=== PATIENT | female | born 1960 | race African-American/Black ===

== ENCOUNTER 2016-11-01 09:13 | Emergency (ER) | payer MEDICARE ==
[2016-11-01 08:54] LABS: BASOPHILS 0.1 %; BASOPHILS ABSOLUTE 0.01 10/3/uL (0.0-0.16); EOSINOPHILS 0.7 %; EOSINOPHILS ABSOLUTE 0.06 10/3/uL (0.0-0.53); ER CBC TAT 0 Hrs 07 Mins; HEMATOCRIT 29.2 % (36.0-48.0); HEMOGLOBIN 9.9 g/dL (12.0-16.0); IMMATURE GRANULOCYTES 0.2 %; IMMATURE GRANULOCYTES ABSOLUTE 0.02 10/3/uL (0.0-0.11); LYMPHOCYTES 20.9 %; LYMPHOCYTES ABSOLUTE 1.68 10/3/uL (0.67-4.30); MANUAL DIFF NO %; MEAN CORPUS HGB CONC 33.9 g/dL (32.0-36.0); MEAN CORPUSCULAR HEMOGLOB 31.3 pg (26.0-34.0); MEAN CORPUSCULAR VOLUME 92.4 fL (80-100); MEAN PLATELET VOLUME 11.7 fL (9.2-13.0); MONOCYTES 10.2 %; MONOCYTES ABSOLUTE 0.82 10/3/uL (0.21-1.20); NEUTROPHILS 67.9 %; NEUTROPHILS ABSOLUTE 5.46 10/3/uL (2.02-8.40); PLATELET COUNT 259 10/3/uL (150-400); RBC DISTRIBUTION WIDTH 17.3 % (12.0-16.0); RED CELL COUNT 3.16 10/6/uL (4.0-5.6); WHITE BLOOD CELLS 8.1 10/3/uL (4.5-10.5)
[2016-11-01 09:08] LABS: A/G RATIO 0.9 (0.7-1.9); ALBUMIN 3.1 G/DL (3.5-5.0); ALKALINE PHOSPHATASE 228 U/L (45-117); BUN (BLOOD UREA NITROGEN) 36 MG/DL (6-23); CALCIUM, SERUM 9.1 MG/DL (8.5-10.4); CHLORIDE, SERUM 100 MMOL/L (96-112); CO2 (CARBON DIOXIDE) 24 MMOL/L (24-34); CREATININE 1.85 MG/DL (0.55-1.02); GFR AFRICAN AMERICAN 35 ML/MIN (>=60); GFR NON AFRICAN AMERICAN 30 ML/MIN (>=60); GLOBULIN 3.5 G/DL (2.5-4.1); GLUCOSE, SERUM 168 MG/DL (60-99); POTASSIUM, SERUM 3.5 MMOL/L (3.5-5.3); SGOT(AST) 14 U/L (5-40); SGPT(ALT) 30 U/L (5-65); SODIUM, SERUM 138 MMOL/L (135-148); TOTAL BILIRUBIN 1.5 MG/DL (0-1.2); TOTAL PROTEIN 6.6 G/DL (6.0-8.5)
[~2016-11-01 09:13] MED LIST: ASABAYER PO; ATV.5 PO; ATV1 PO; BETHAN10B PO; CETIRIZINE PO; COMBIVENT RESPIM4 GM INH; COMP10B PO; COREG25 PO; FIORICET 50-301 EACH PO; FLONASE NAS; ICY HOT CREAM TOP; INSULIN N SC; INSULIN R SC; L80 PO; METHIMAZOLE10 MG PO; METHOC500B PO; NEXIUM20 M1 PO; NEXIUM40 PO; NORCO1 TA1 PO; NOVOLOG SC; PATADAY OPH; PRIN20 PO; PROVENTSOL INH; PSEUDOEPHEDRINE PO; SEROQUEL1C PO; SEROQUEL50 MG PO; ZYRTEC ALLGY10 MG PO
== END 2016-11-01 12:15 | disposition home or self-care (01) ==
LOC: ER 09:13
PROVIDERS: Nurse Practitioner
DX: D64.9 Anemia, unspecified (principal); I12.9 Hypertensive chronic kidney disease with stage 1 through stage 4 chronic kidney disease, or unspecified chronic kidney disease; N18.9 Chronic kidney disease, unspecified; M25.50 Pain in unspecified joint; J45.909 Unspecified asthma, uncomplicated; K21.9 Gastro-esophageal reflux disease without esophagitis; E11.9 Type 2 diabetes mellitus without complications
CPT/HCPCS: 80053; 85025; 93005; 96372; 99285; A9270-GY; J1170

== ENCOUNTER 2016-11-06 02:02 | Inpatient (IN) | payer MEDICARE ==
--- NOTE | ~2016-11-06 | CN ---
Consultation Report [facility] [address] [place]. [address] NAME: MOON REILLY : 64 STATUS : ADM IN PAT#: [id number] AGE: 56 ADM/REG DATE : 11/06/16 MR#: [id number] REPORT SERV DATE: 11/08/16 DICTATED BY: DATE: REPORT STATUS : Draft TRANSCRIBED BY: MODL DATE: 11/08/16 DATE OF CONSULTATION: REASON FOR CONSULTATION: Acute kidney injury. HISTORY OF PRESENT ILLNESS: Ms Reilly is a very pleasant 56-year-old black female with CKD III to IV. She follows in the office with Dr. Basilio. When I look at [facility] records, it looks like her baseline creatinine is probably 1.7 to 1.8. She is known to have sarcoidosis. She originally presented to the hospital on 11/06/2016 with nausea and vomiting, felt secondary to diabetic gastroparesis. Was hydrated and now she is in renal failure. She presented with a creatinine of 3.2, creatinine improved to 2.7 and now it is up to 3.7, and apparently overnight, she has had significant decrease in urine output. She has now had very little despite getting Lasix 80 q.12 hours x2 doses. She denies any shortness of breath or chest pain at this time. However, has significant edema, and states in the past when she has had this edema, she has had to have a drip to get the fluid off. Blood pressures are reasonable. She does have a Veloz catheter in place. She has had a CT of the abdomen, which revealed no obstruction, but she has small kidneys with significant anasarca. PAST MEDICAL HISTORY: CKD, sarcoidosis, hypertension, gastroparesis, diabetes, anemia, systolic and diastolic dysfunction with an EF of 20. SOCIAL HISTORY: No tobacco, alcohol, or illicit drug use. FAMILY MEDICAL HISTORY: Her mother and father both with end-stage renal disease, on dialysis. ALLERGIES: PENICILLIN AND HALDOL. MEDICATIONS: At time of consultation, Lasix 80 b.i.d., Coreg, aspirin, heparin, [place], NovoLog, Ativan, Protonix, MiraLAX, Deltasone, and Seroquel. REVIEW OF SYSTEMS: 12-point review of systems was obtained, negative with the exception that in HPI. PHYSICAL EXAMINATION: VITAL SIGNS: Temp 97.3, blood pressure 150/75, pulse 84, respiratory rate 16, O2 saturation is 99%. GENERAL: This is a pleasant, cooperative, white female. She is awake, alert, oriented, sitting up in chair at bedside. HEENT: Normocephalic, atraumatic. Conjunctivae clear. Sclerae anicteric. Pupils are equal and round. Oral mucosa is moist. NECK: Supple. Carotids are brisk. Neck veins flat. No lymphadenopathy. LUNGS: Respirations even and unlabored. Breath sounds clear to auscultation. HEART: Rate is regular. I did not hear any murmur, rub, or gallop. Consultation Report [place] [id number] [facility] [place]. [address] NAME: MOON REILLY : 64 STATUS : ADM IN [facility]#: [id number] AGE: 56 ADM/REG DATE : 11/06/16 MR#: [id number] REPORT SERV DATE: 11/08/16 DICTATED BY: DATE: REPORT STATUS : Draft TRANSCRIBED BY: ALEK DATE: 11/08/16 ABDOMEN: Obese. She has gotten significant edema to the abdominal wall and back. LOWER EXTREMITIES: With significant edema as well at 2+. SKIN: Warm, dry, and intact. No unusual rash or skin lesions. NEURO: No focal deficits. Mood and affect, pleasant appropriate. PERTINENT LABS AND X-RAYS: Sodium 133.4, potassium 4.9, chloride 98, CO2 of 20, BUN of 76, creatinine of 3.7, calcium 8.7, magnesium 1.8. WBCs 9, H and H 10 and 30, platelets 219,000. She has gotten a CT of the abdomen with small kidneys and anasarca with body wall edema. IMPRESSION: 1. Oliguric acute kidney injury. 2. Chronic kidney disease stage IV. 3. Acute exacerbation of congestive heart failure with ejection fraction ejection fraction of 20. 4. Sarcoidosis. 5. Hypertension. 6. Diabetes. PLAN/RECOMMENDATION: Acute kidney injury that has now become oliguric. She has gotten Veloz and no obstruction noted on CT. I suspect she has acute cardiorenal syndrome. We will diurese with IV Bumex. Give her a dose of Diuril, I's and O's and labs in an attempt to avoid dialysis. We will follow along with you. Thank you for the consultation. BC/RAJL ALEJA Olivares / [id number] CC: MD Christiano Garrett M.D.
--- NOTE | ~2016-11-06 | HP ---
History And Physical [place] [id number] [place]. [address] NAME: MOON REILLY : 64 STATUS : ADM Nam PAT#: [id number] AGE: 56 ADM/REG DATE : 11/06/16 MR#: [id number] REPORT SERV DATE: 11/06/16 DICTATED BY: BISHOP OWEN DATE: 11/06/16 REPORT STATUS : Draft TRANSCRIBED BY: MODL DATE: 11/06/16 DATE OF ADMISSION: 11/06/2016 CHIEF COMPLAINT: Abdominal pain, severe intractable nausea, vomiting. HISTORY OF PRESENT ILLNESS: This is a 56-year-old female, who has had several admissions here in the past for similar symptoms. She has history of gastroparesis with recurrent abdominal pains, history of aeaxu-cd-eyilbix kidney disease, history of diabetes mellitus, which is poorly controlled along with essential hypertension, which is also poorly controlled. She also has mood disorder as well. She presents today to the ER at [facility] with the above-mentioned complaint. History is obtained from the patient and also reviewing data available on the [employer] system here. According to available data, she had been in usual state of health and started having increasing abdominal pain, intractable nausea and vomiting since early this week. In the last couple of days, she has not been able to keep anything down and decided to come to the emergency room to be evaluated. In the emergency room, initial workup revealed she had acute kidney injury upon chronic kidney disease. Her diabetes mellitus was uncontrolled. She had hyperglycemia. She had uncontrolled hypertension as well and had worsening of her mood disorder as well. Hospitalist Service is asked to admit her for further evaluation and treatment. She was last discharged from here on 11/01/2016. At the time of my evaluation, she denied any chest pain or palpitations. She had no cough, hemoptysis, night sweats, or weight loss. She did not have any recent falls or loss of consciousness. No history of recent fevers or shaking chills. She did have nausea with vomiting, bilious mucoid material. She was not coughing up any blood, passing any blood in her stools, or anywhere else. No other history of recent travel or exposures other than those mentioned above. PAST MEDICAL HISTORY: Significant for history of sarcoidosis, currently on oral steroid therapy; history of essential hypertension; gastroparesis secondary to poorly controlled diabetes mellitus; history of anemia; asthma; diastolic congestive heart failure; and mood disorder. She also has chronic kidney disease with frequent exacerbations and acute kidney injuries. SOCIAL HISTORY: She does not smoke, drink, or use recreational drugs. FAMILY HISTORY: Noncontributory. MEDICATIONS AT HOME: Reviewed by me in the chart today and reordered by me. REVIEW OF SYSTEMS: As in history of present illness. All other systems were reviewed in detail and are quite unremarkable. History And Physical [address] [place]. [address] NAME: MOON REILLY : 64 STATUS : ADM Nam PAT#: [id number] AGE: 56 ADM/REG DATE : 11/06/16 MR#: [id number] REPORT SERV DATE: 11/06/16 DICTATED BY: BISHOP OWEN DATE: 11/06/16 REPORT STATUS : Draft TRANSCRIBED BY: ALEK DATE: 11/06/16 PHYSICAL EXAMINATION: GENERAL: This is a pleasant 56-year-old, who has mood disorder and has been screaming the whole time she was here in the ER. However, she listens when we asked her to stop and answers few questions appropriately, then goes back to shouting. I do think she is oriented to where she is. HEENT: Her head is atraumatic, normocephalic. Her pupils are equal, reacting to light and accommodating. External ocular muscles are intact. Membranes are moist and pink. Sclerae are nonicteric. SKIN: Over her entire body has lesions as well. NECK: Supple with no jugular venous distention, lymphadenopathy, or thyromegaly. LUNGS: Clear to auscultation with no wheezes, rubs, or crackles. HEART: Sounds were regular with no murmurs, rubs, or gallops. ABDOMEN: Soft, nontender. Bowel sounds are present. EXTREMITIES: Showed no cyanosis, clubbing, or edema. NEUROLOGIC: Appeared to be grossly intact, but has mood disorder. Follows very few commands. She is on Ativan, which was given in the ER and has become quite lethargic. VITAL SIGNS: Her temperature today was 98.1, pulse 110, respirations 20 a minute, blood pressure upon arrival was 161/124. Oxygen saturations were 100%, breathing 2 L of oxygen via nasal cannula. LABORATORY DATA: Reviewed on the [employer] system showed a sodium of 138, potassium 4.3, chloride 96, and CO2 of 26, BUN was 57 with a creatinine of 3.22, which is up from 1.85 on 11/01/2016. Glucose was 308 today. Her troponin was 0.03. CBC revealed a white blood cell count of 10,400, hemoglobin was 9.5, hematocrit 28.8, which has been where she was prior to her discharge. Her MCV was 96.3. Platelet count was 243,000. Urinalysis did not reveal any acute pathology at this time. Films of the CT scan of her abdomen and pelvis were reviewed by me on the PACS today and interpreted by me. Official radiology report was also reviewed. There is no acute intra-abdominopelvic pathology at this time. IMPRESSION: 1. Abdominal pain. 2. Intractable nausea and vomiting. 3. Acute kidney injury upon chronic kidney disease. 4. Diabetes mellitus type 2 with hyperglycemia. 5. Sarcoidosis, currently on steroid therapy. 6. Essential hypertension, uncontrolled. 7. Gastroparesis. 8. Anemia. 9. Asthma. 10.Diastolic heart failure. 11.Mood disorder. PLAN: We will admit Mrs. Reilly to the Hospitalist Service with telemetry for a 24-hour observation period. We will offer Zofran and Phenergan intravenously for nausea and vomiting, keep her n.p.o. We will start her on aggressive volume replacement for her acute- on-chronic kidney disease. Follow chemistry, renal function, and electrolytes in the History And Physical [address] [address] NAME: MOON REILLY CORI : 64 STATUS : ADM Nam PAT#: [id number] AGE: 56 ADM/REG DATE : 11/06/16 MR#: [id number] REPORT SERV DATE: 11/06/16 DICTATED BY: BISHOP OWEN DATE: 11/06/16 REPORT STATUS : Draft TRANSCRIBED BY: MODL DATE: 11/06/16 morning and replace as needed. We will start her on NovoLog insulin per sliding scale for blood sugar control. Check her A1c. We will also control blood pressures with hydralazine given intravenously in addition to her medications. We will start her on IV steroids, stop her oral prednisone, place her on unfractionated heparin for DVT prophylaxis while here as well. She will also be on Ativan and Seroquel for her mood disorder. I have discussed the above plans with the patient. Her questions were answered and she is agreeable to the above recommendations. Hospitalist Service will be following her during her stay here. /ALEK Bishop Owen M.D. / [id number] CC: MD Christiano Garrett M.D.
--- NOTE | ~2016-11-06 | DS ---
Discharge Summary [facility] [address] [place]. [address] NAME: MOON REILLY : 64 STATUS : ADM IN PAT#: [id number] AGE: 56 ADM/REG DATE : 11/06/16 MR#: [id number] REPORT SERV DATE: 11/17/16 DICTATED BY: GIO BERG DATE: 11/16/16 REPORT STATUS : Draft TRANSCRIBED BY: MODL DATE: 11/16/16 ADMISSION DATE: 11/06/2016 DISCHARGE DATE: The patient is a 56-year-old female with a history of CKD stage 3, heart failure with reduced EF, sarcoidosis, diabetes type 1, bipolar disorder, who presented to the emergency room with a complaint of abdominal pain, intractable nausea and vomiting. For further details please refer to H and P dictated by Dr. Laboy on 11/06/2016. HOSPITAL COURSE: Upon presentation to the emergency room, the patient was admitted under Hospitalist Service. The patient was noted to be in significant volume overload consistent with an anasarca. The patient was also noted to have JORDI on presentation. The patient was started on IV Lasix and was started on medication for management of her initial presenting complaint which was abdominal pain and severe nausea and vomiting. I assumed care of the patient on 11/10/2016. At the time of my assumption of care, her nausea and abdominal pain had resolved. Nephrology had already been consulted and was following the patient. Also the patient had a transthoracic echo, which noted an EF of 20%. By the time of my assumption of care the patient was still severely volume overloaded with a creatinine greater than 3. The patient was placed on aggressive diuresis with significant improvement in her volume status. Nephrology has followed the patient all through her hospitalization here, and the patient is well known to the Nephrology Service. Also, while the patient was in-house the patient had a Veloz catheter placed due to her significant anasarca with difficulty with mobility. Veloz catheter was placed to measure urine output. Her urinalysis which was obtained at admission and reflux culture obtained was positive. The patient also during her hospital course complained of hematuria; however, the patient did not report any symptoms of dysuria or frequency. Given the new finding of hematuria in the setting of positive urine culture. The patient was started on antibiotic therapy with resolution of her hematuria. The patient's volume status has significantly improved. Her kidney function has significantly improved. At the time of her presentation, the patient was in CKD stage 4, now she is transitioned to CKD stage 3 with a creatinine of 2.24. The patient's creatinine has improved; however, the patient is still in CKD stage 4. Given her significant improvement the patient will be discharged today to follow up with Nephrology as an outpatient. Also it was noted that the patient developed tachycardia during her hospitalization likely due to over diuresis. Her diuresis has been cut back from Furosemide of 100 mg a day to 50 mg a day, and her carvedilol has been increased from 12.5 once a day to 12.5 b.i.d. 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 Plan has been discussed with the patient who voices understanding and is agreeable with this plan. DISCHARGE DIAGNOSES: 1. Anasarca. 2. Heart failure with reduced ejection fraction. EF 20%. 3. Acute kidney injury. 4. Chronic kidney disease, stage 4. Discharge Summary [address] [address] NAME: MOON REILLY : 64 STATUS : ADM IN [facility]#: [id number] AGE: 56 ADM/REG DATE : 11/06/16 MR#: [id number] REPORT SERV DATE: 11/17/16 DICTATED BY: GIO BERG DATE: 11/16/16 REPORT STATUS : Draft TRANSCRIBED BY: ALEK DATE: 11/16/16 5. Urinary tract infection with hematuria. 6. Sarcoidosis. 7. Hilar mass. 8. Obesity. DISCHARGE EXAMINATION: VITAL SIGNS: Blood pressure 131/76, pulse of 101, respiration of 16, O2 saturation 95% on 2 L nasal cannula, and temperature afebrile at 98.2. GENERAL: The patient sitting in bed, in no acute distress. Appears stated age. HEENT: Normocephalic and atraumatic. Extraocular motors intact. Papular rashes noted on her face and all through her body at different stages of healing. NECK: Trachea midline and symmetric. No JVD noted. CHEST: Nontender to palpation. CARDIOVASCULAR: Tachycardic S1, S2. No murmurs noted. LUNGS: Clear to auscultation bilaterally. No breath sounds. ABDOMEN: Positive bowel sounds. Nontender. Nondistended. EXTREMITIES: Lower extremity with 2+ pitting edema from knees down with some weeping excoriations noted in her lower extremities. NEUROLOGIC: Alert and oriented x3. No focal deficits appreciated. DISCHARGE MEDICATIONS: The patient's home medications were continued with the addition of: 1. Torsemide 50 mg p.o. daily. 2. Carvedilol 12.5 mg p.o. b.i.d. 3. Duricef 500 mg p.o. daily for five days. IMAGING: Transthoracic echo performed on 11/07/2016. Findings Summary: Mildly dilated left ventricle with severe global left ventricular systolic dysfunction. EF 20%. Mild left ventricular diastolic dysfunction, moderately dilated right ventricle with mildly decreased systolic function, moderate biatrial enlargement, [id number] mitral regurgitation, mild aortic and tricuspid regurgitation. CT of the abdomen and pelvis. Impression: Cardiomegaly with extensive body anasarca. There is no evidence of failure or pleural effusion. Kidneys appear atrophied or small, right kidney measures 7.2, left kidney 6.8, these are symmetric. This would certainly not exclude however on the line medical parenchymal kidney disease and the anemia and body anasarca will certainly be consistent with this CT chest without contrast. IMPRESSION: Borderline superior mediastinal adenopathy consistent with history of sarcoidosis findings are stable. No lung masses or significant lung infiltrates. There is minimal interstitial thickening also consistent with a history of sarcoidosis. Heart size remains enlarged. DISPOSITION: The patient will be discharged home to follow up with Nephrology and our primary care physician. ACTIVITY: As tolerated. DIET: Diabetic diet. Discharge Summary [place] [id number] [place]. [address] NAME: MOON REILLY CORI : 64 STATUS : ADM IN [facility]#: [id number] AGE: 56 ADM/REG DATE : 11/06/16 MR#: [id number] REPORT SERV DATE: 11/17/16 DICTATED BY: GIO BERG DATE: 11/16/16 REPORT STATUS : Draft TRANSCRIBED BY: ALEK DATE: 11/16/16 Greater than 30 minutes were spent coordinating care and counseling, dictation of note, discussion of case with consultants. LEYLA/ALEK Gio Berg MD / [id number] CC: MD Christiano Colon M.D.
[2016-11-06 02:19] LABS: BASOPHILS 0 %; EOSINOPHILS 0.2 %; EOSINOPHILS ABSOLUTE 0.02 10/3/uL (0.0-0.53); ER CBC TAT 0 Hrs 10 Mins; HEMATOCRIT 28.8 % (36.0-48.0); HEMOGLOBIN 9.5 g/dL (12.0-16.0); IMMATURE GRANULOCYTES 0.4 %; IMMATURE GRANULOCYTES ABSOLUTE 0.04 10/3/uL (0.0-0.11); LYMPHOCYTES 18.8 %; LYMPHOCYTES ABSOLUTE 1.96 10/3/uL (0.67-4.30); MEAN CORPUSCULAR HEMOGLOB 31.8 pg (26.0-34.0); MEAN PLATELET VOLUME 11.9 fL (9.2-13.0); MONOCYTES 9.2 %; MONOCYTES ABSOLUTE 0.96 10/3/uL (0.21-1.20); NEUTROPHILS 71.4 %; NEUTROPHILS ABSOLUTE 7.44 10/3/uL (2.02-8.40); PLATELET COUNT 243 10/3/uL (150-400); RBC DISTRIBUTION WIDTH 17.9 % (12.0-16.0); RED CELL COUNT 2.99 10/6/uL (4.0-5.6); WHITE BLOOD CELLS 10.4 10/3/uL (4.5-10.5)
[2016-11-06 02:21] LABS: MANUAL DIFF NO %; MEAN CORPUSCULAR VOLUME 96.3 fL (80-100)
[2016-11-06 02:26] LABS: INTERNATIONAL NORMAL RATI 1.2 UNITS (-); PARTIAL THROMBO TIME 25.6 SEC (22.5-37.2); PROTIME (NOT ORD) 15.2 SEC (12.0-14.5)
[2016-11-06 03:12] LABS: ASCORBIC ACID (UR NOT ORDER) NEG (NEG); BILIRUBIN, URINE NEGATIVE (NEG); ER URINALYSIS TAT 0 Hrs 00 Mins; KETONE, URINE NEGATIVE (NEG); LEUKOCYTE ESTERASE(NOT OR NEG (NEG); NITRITE (URINE) NEG (NEG); WBC (NOT ORDERED) (RFLEX) 1 (0-5)
[2016-11-06 03:55] LABS: ACETONE NEG
[2016-11-06 04:03] LABS: ALBUMIN 3.4 G/DL (3.5-5.0); CALCIUM, SERUM 8.8 MG/DL (8.5-10.4); CHEST PAIN PROFILE TAT 0 Hrs 23 Mins; CHLORIDE, SERUM 96 MMOL/L (96-112); CO2 (CARBON DIOXIDE) 26 MMOL/L (24-34); SGOT(AST) 47 U/L (5-40); SGPT(ALT) 48 U/L (5-65); SODIUM, SERUM 138 MMOL/L (135-148); TOTAL BILIRUBIN 1.5 MG/DL (0-1.2); TOTAL PROTEIN 7.1 G/DL (6.0-8.5); TROPONIN I 0.03 NG/ML (<0.05)
[2016-11-06 04:05] LABS: ALKALINE PHOSPHATASE 245 U/L (45-117); BUN (BLOOD UREA NITROGEN) 57 MG/DL (6-23); CREATININE 3.22 MG/DL (0.55-1.02); DIRECT BILIRUBIN 0.8 MG/DL (0.0-0.4); GFR AFRICAN AMERICAN 18 ML/MIN (>=60); GFR NON AFRICAN AMERICAN 16 ML/MIN (>=60); GLUCOSE, SERUM 304 MG/DL (60-99); INDIRECT BILIRUBIN(NOT ORDER) 0.7 MG/DL (0.1-0.9); POTASSIUM, SERUM 4.3 MMOL/L (3.5-5.3)
[2016-11-06 10:37] LABS: BASOPHILS 0.1 %; BASOPHILS ABSOLUTE 0.01 10/3/uL (0.0-0.16); EOSINOPHILS 0 %; HEMATOCRIT 31.1 % (36.0-48.0); HEMOGLOBIN 10.2 g/dL (12.0-16.0); IMMATURE GRANULOCYTES 0.5 %; IMMATURE GRANULOCYTES ABSOLUTE 0.04 10/3/uL (0.0-0.11); LYMPHOCYTES 11.5 %; LYMPHOCYTES ABSOLUTE 0.96 10/3/uL (0.67-4.30); MEAN CORPUS HGB CONC 32.8 g/dL (32.0-36.0); MEAN CORPUSCULAR HEMOGLOB 31.5 pg (26.0-34.0); MEAN PLATELET VOLUME 11.4 fL (9.2-13.0); MONOCYTES 1.3 %; MONOCYTES ABSOLUTE 0.11 10/3/uL (0.21-1.20); NEUTROPHILS 86.6 %; NEUTROPHILS ABSOLUTE 7.25 10/3/uL (2.02-8.40); PLATELET COUNT 233 10/3/uL (150-400); RED CELL COUNT 3.24 10/6/uL (4.0-5.6); WHITE BLOOD CELLS 8.4 10/3/uL (4.5-10.5)
[2016-11-06 10:42] LABS: MANUAL DIFF NO %
[2016-11-06] MEDS ORDERED: PR25 PO (10:52)
[2016-11-06] MEDS ORDERED: TRIAMCINOLONE O80 GM TOP (10:53)
[2016-11-06] MEDS ORDERED: P20 PO (10:53)
[2016-11-06 10:56] LABS: BUN (BLOOD UREA NITROGEN) 57 MG/DL (6-23); CALCIUM, SERUM 9.1 MG/DL (8.5-10.4); CHLORIDE, SERUM 101 MMOL/L (96-112); CO2 (CARBON DIOXIDE) 24 MMOL/L (24-34); CREATININE 3.11 MG/DL (0.55-1.02); GFR AFRICAN AMERICAN 19 ML/MIN (>=60); GFR NON AFRICAN AMERICAN 16 ML/MIN (>=60); GLUCOSE, SERUM 276 MG/DL (60-99); PHOSPHORUS, SERUM 3.3 MG/DL (2.5-4.5); POTASSIUM, SERUM 4.1 MMOL/L (3.5-5.3); SODIUM, SERUM 139 MMOL/L (135-148)
[2016-11-06 20:14] LABS: BUN (BLOOD UREA NITROGEN) 57 MG/DL (6-23); CALCIUM, SERUM 8.9 MG/DL (8.5-10.4); CHLORIDE, SERUM 101 MMOL/L (96-112); CO2 (CARBON DIOXIDE) 25 MMOL/L (24-34); CREATININE 2.79 MG/DL (0.55-1.02); GFR AFRICAN AMERICAN 21 ML/MIN (>=60); GFR NON AFRICAN AMERICAN 18 ML/MIN (>=60); POTASSIUM, SERUM 4.1 MMOL/L (3.5-5.3); SODIUM, SERUM 139 MMOL/L (135-148)
[2016-11-06 20:15] LABS: GLUCOSE, SERUM 103 MG/DL (60-99)
[2016-11-07 10:28] LABS: CHLORIDE, SERUM 100 MMOL/L (96-112); CREATININE 3.23 MG/DL (0.55-1.02); GFR AFRICAN AMERICAN 18 ML/MIN (>=60); GFR NON AFRICAN AMERICAN 15 ML/MIN (>=60); POTASSIUM, SERUM 4.8 MMOL/L (3.5-5.3); SODIUM, SERUM 136 MMOL/L (135-148)
[2016-11-07 10:29] LABS: BASOPHILS 0.2 %; BASOPHILS ABSOLUTE 0.02 10/3/uL (0.0-0.16); BUN (BLOOD UREA NITROGEN) 65 MG/DL (6-23); CO2 (CARBON DIOXIDE) 17 MMOL/L (24-34); EOSINOPHILS 0 %; GLUCOSE, SERUM 248 MG/DL (60-99); HEMATOCRIT 32.9 % (36.0-48.0); HEMOGLOBIN 10.6 g/dL (12.0-16.0); IMMATURE GRANULOCYTES 0.9 %; IMMATURE GRANULOCYTES ABSOLUTE 0.07 10/3/uL (0.0-0.11); LYMPHOCYTES ABSOLUTE 0.81 10/3/uL (0.67-4.30); MANUAL DIFF NO %; MEAN CORPUS HGB CONC 32.2 g/dL (32.0-36.0); MEAN CORPUSCULAR HEMOGLOB 31.4 pg (26.0-34.0); MEAN CORPUSCULAR VOLUME 97.3 fL (80-100); MEAN PLATELET VOLUME 11.5 fL (9.2-13.0); MONOCYTES 2.9 %; MONOCYTES ABSOLUTE 0.23 10/3/uL (0.21-1.20); NEUTROPHILS ABSOLUTE 6.94 10/3/uL (2.02-8.40); PLATELET COUNT 235 10/3/uL (150-400); RBC DISTRIBUTION WIDTH 18.6 % (12.0-16.0); RED CELL COUNT 3.38 10/6/uL (4.0-5.6); WHITE BLOOD CELLS 8.1 10/3/uL (4.5-10.5)
[2016-11-07 11:41] LABS: PLATELET ESTIMATE ADQ (ADEQUATE)
[2016-11-07 11:42] LABS: ANISOCYTOSIS 1+ (5-10/OIF) (0-5/OIF); POLYCHROMASIA 1+ (2-5/OIF) (0-1/OIF); TARGET CELLS OCC (1-2/OIF) (0-1/OIF); TEARDROP SHAPED RBCS OCC (0-2/OIF)
[2016-11-08 09:00] LABS: BASOPHILS 0 %; EOSINOPHILS 0 %; HEMATOCRIT 30.3 % (36.0-48.0); IMMATURE GRANULOCYTES 0.1 %; IMMATURE GRANULOCYTES ABSOLUTE 0.01 10/3/uL (0.0-0.11); LYMPHOCYTES 10.1 %; LYMPHOCYTES ABSOLUTE 0.95 10/3/uL (0.67-4.30); MEAN CORPUSCULAR HEMOGLOB 30.8 pg (26.0-34.0); MEAN PLATELET VOLUME 11.5 fL (9.2-13.0); MONOCYTES 7.1 %; MONOCYTES ABSOLUTE 0.66 10/3/uL (0.21-1.20); NEUTROPHILS 82.7 %; NEUTROPHILS ABSOLUTE 7.74 10/3/uL (2.02-8.40); PLATELET COUNT 219 10/3/uL (150-400); RBC DISTRIBUTION WIDTH 18.3 % (12.0-16.0); RED CELL COUNT 3.25 10/6/uL (4.0-5.6); WHITE BLOOD CELLS 9.4 10/3/uL (4.5-10.5)
[2016-11-08 09:02] LABS: MANUAL DIFF NO %; MEAN CORPUSCULAR VOLUME 93.2 fL (80-100)
[2016-11-08 09:10] LABS: CALCIUM, SERUM 8.7 MG/DL (8.5-10.4); CHLORIDE, SERUM 98 MMOL/L (96-112); CREATININE 3.71 MG/DL (0.55-1.02); GFR AFRICAN AMERICAN 15 ML/MIN (>=60); GFR NON AFRICAN AMERICAN 13 ML/MIN (>=60); POTASSIUM, SERUM 4.9 MMOL/L (3.5-5.3); SODIUM, SERUM 134 MMOL/L (135-148)
[2016-11-08 09:11] LABS: BUN (BLOOD UREA NITROGEN) 76 MG/DL (6-23); CO2 (CARBON DIOXIDE) 22 MMOL/L (24-34); GLUCOSE, SERUM 362 MG/DL (60-99)
[2016-11-08 17:39] LABS: ALBUMIN 3.3 G/DL (3.5-5.0); BUN (BLOOD UREA NITROGEN) 78 MG/DL (6-23); CALCIUM, SERUM 8.9 MG/DL (8.5-10.4); CHLORIDE, SERUM 101 MMOL/L (96-112); CO2 (CARBON DIOXIDE) 21 MMOL/L (24-34); CREATININE 3.92 MG/DL (0.55-1.02); GFR AFRICAN AMERICAN 14 ML/MIN (>=60); GFR NON AFRICAN AMERICAN 12 ML/MIN (>=60); POTASSIUM, SERUM 4.9 MMOL/L (3.5-5.3); SODIUM, SERUM 138 MMOL/L (135-148)
[2016-11-08 17:41] LABS: GLUCOSE, SERUM 145 MG/DL (60-99)
[2016-11-09 07:11] LABS: BASOPHILS 0 %; EOSINOPHILS 0 %; HEMOGLOBIN 11.2 g/dL (12.0-16.0); IMMATURE GRANULOCYTES 0.3 %; IMMATURE GRANULOCYTES ABSOLUTE 0.03 10/3/uL (0.0-0.11); LYMPHOCYTES 13.7 %; LYMPHOCYTES ABSOLUTE 1.31 10/3/uL (0.67-4.30); MEAN CORPUS HGB CONC 33.5 g/dL (32.0-36.0); MEAN CORPUSCULAR VOLUME 95.4 fL (80-100); MEAN PLATELET VOLUME 11.4 fL (9.2-13.0); MONOCYTES ABSOLUTE 0.48 10/3/uL (0.21-1.20); NEUTROPHILS ABSOLUTE 7.72 10/3/uL (2.02-8.40); PLATELET COUNT 222 10/3/uL (150-400); RBC DISTRIBUTION WIDTH 18.3 % (12.0-16.0); WHITE BLOOD CELLS 9.5 10/3/uL (4.5-10.5)
[2016-11-09 07:13] LABS: HEMATOCRIT 33.4 % (36.0-48.0); MANUAL DIFF NO %
[2016-11-09 10:41] LABS: ALBUMIN 3.3 G/DL (3.5-5.0); BUN (BLOOD UREA NITROGEN) 81 MG/DL (6-23); CHLORIDE, SERUM 99 MMOL/L (96-112); CREATININE 3.89 MG/DL (0.55-1.02); GFR AFRICAN AMERICAN 14 ML/MIN (>=60); GFR NON AFRICAN AMERICAN 12 ML/MIN (>=60); SODIUM, SERUM 135 MMOL/L (135-148)
[2016-11-09 10:42] LABS: CO2 (CARBON DIOXIDE) 27 MMOL/L (24-34); GLUCOSE, SERUM 258 MG/DL (60-99); POTASSIUM, SERUM 3.9 MMOL/L (3.5-5.3)
[2016-11-10 05:47] LABS: BASOPHILS 0 %; EOSINOPHILS 0.2 %; EOSINOPHILS ABSOLUTE 0.02 10/3/uL (0.0-0.53); HEMATOCRIT 35.5 % (36.0-48.0); HEMOGLOBIN 11.7 g/dL (12.0-16.0); IMMATURE GRANULOCYTES 0.2 %; IMMATURE GRANULOCYTES ABSOLUTE 0.02 10/3/uL (0.0-0.11); LYMPHOCYTES 19.4 %; MEAN CORPUSCULAR HEMOGLOB 31.5 pg (26.0-34.0); MEAN CORPUSCULAR VOLUME 95.7 fL (80-100); MEAN PLATELET VOLUME 11.6 fL (9.2-13.0); MONOCYTES 6.2 %; MONOCYTES ABSOLUTE 0.61 10/3/uL (0.21-1.20); NEUTROPHILS ABSOLUTE 7.24 10/3/uL (2.02-8.40); PLATELET COUNT 194 10/3/uL (150-400); RBC DISTRIBUTION WIDTH 18.3 % (12.0-16.0); RED CELL COUNT 3.71 10/6/uL (4.0-5.6); WHITE BLOOD CELLS 9.8 10/3/uL (4.5-10.5)
[2016-11-10 05:48] LABS: MANUAL DIFF NO %
[2016-11-10 06:04] LABS: ALBUMIN 2.9 G/DL (3.5-5.0); CALCIUM, SERUM 8.6 MG/DL (8.5-10.4); CHLORIDE, SERUM 100 MMOL/L (96-112); CO2 (CARBON DIOXIDE) 25 MMOL/L (24-34); PHOSPHORUS, SERUM 3.1 MG/DL (2.5-4.5); POTASSIUM, SERUM 3.7 MMOL/L (3.5-5.3); SODIUM, SERUM 141 MMOL/L (135-148)
[2016-11-10 06:05] LABS: BUN (BLOOD UREA NITROGEN) 73 MG/DL (6-23); CREATININE 3.19 MG/DL (0.55-1.02); GFR AFRICAN AMERICAN 18 ML/MIN (>=60); GFR NON AFRICAN AMERICAN 16 ML/MIN (>=60); GLUCOSE, SERUM 168 MG/DL (60-99)
[2016-11-11 06:43] LABS: BASOPHILS 0.1 %; BASOPHILS ABSOLUTE 0.01 10/3/uL (0.0-0.16); EOSINOPHILS 0 %; HEMATOCRIT 35.2 % (36.0-48.0); HEMOGLOBIN 11.6 g/dL (12.0-16.0); IMMATURE GRANULOCYTES 0.4 %; IMMATURE GRANULOCYTES ABSOLUTE 0.05 10/3/uL (0.0-0.11); LYMPHOCYTES ABSOLUTE 1.22 10/3/uL (0.67-4.30); MANUAL DIFF NO %; MEAN CORPUSCULAR HEMOGLOB 31.7 pg (26.0-34.0); MEAN CORPUSCULAR VOLUME 96.2 fL (80-100); MEAN PLATELET VOLUME 11.8 fL (9.2-13.0); MONOCYTES 7.7 %; MONOCYTES ABSOLUTE 1.04 10/3/uL (0.21-1.20); NEUTROPHILS 82.8 %; NEUTROPHILS ABSOLUTE 11.27 10/3/uL (2.02-8.40); PLATELET COUNT 225 10/3/uL (150-400); RBC DISTRIBUTION WIDTH 18.5 % (12.0-16.0); RED CELL COUNT 3.66 10/6/uL (4.0-5.6); WHITE BLOOD CELLS 13.6 10/3/uL (4.5-10.5)
[2016-11-11 07:03] LABS: A/G RATIO 0.9 (0.7-1.9); ALBUMIN 3.3 G/DL (3.5-5.0); ALKALINE PHOSPHATASE 241 U/L (45-117); CALCIUM, SERUM 8.9 MG/DL (8.5-10.4); CHLORIDE, SERUM 94 MMOL/L (96-112); CREATININE 2.89 MG/DL (0.55-1.02); GFR AFRICAN AMERICAN 21 ML/MIN (>=60); GFR NON AFRICAN AMERICAN 18 ML/MIN (>=60); GLOBULIN 3.8 G/DL (2.5-4.1); PHOSPHORUS, SERUM 2.5 MG/DL (2.5-4.5); POTASSIUM, SERUM 4.1 MMOL/L (3.5-5.3); SGOT(AST) 10 U/L (5-40); SGPT(ALT) 32 U/L (5-65); SODIUM, SERUM 136 MMOL/L (135-148); TOTAL PROTEIN 7.1 G/DL (6.0-8.5)
[2016-11-11 07:05] LABS: BUN (BLOOD UREA NITROGEN) 79 MG/DL (6-23); CO2 (CARBON DIOXIDE) 30 MMOL/L (24-34); GLUCOSE, SERUM 358 MG/DL (60-99); TOTAL BILIRUBIN 0.7 MG/DL (0-1.2)
[2016-11-12 07:53] LABS: BASOPHILS 0 %; EOSINOPHILS 0.3 %; EOSINOPHILS ABSOLUTE 0.05 10/3/uL (0.0-0.53); HEMOGLOBIN 10.2 g/dL (12.0-16.0); IMMATURE GRANULOCYTES 0.3 %; IMMATURE GRANULOCYTES ABSOLUTE 0.04 10/3/uL (0.0-0.11); LYMPHOCYTES 18.8 %; LYMPHOCYTES ABSOLUTE 2.76 10/3/uL (0.67-4.30); MEAN CORPUS HGB CONC 32.8 g/dL (32.0-36.0); MEAN CORPUSCULAR HEMOGLOB 31.4 pg (26.0-34.0); MEAN CORPUSCULAR VOLUME 95.7 fL (80-100); MEAN PLATELET VOLUME 12.3 fL (9.2-13.0); MONOCYTES 7.8 %; MONOCYTES ABSOLUTE 1.14 10/3/uL (0.21-1.20); NEUTROPHILS 72.8 %; NEUTROPHILS ABSOLUTE 10.68 10/3/uL (2.02-8.40); PLATELET COUNT 188 10/3/uL (150-400); RBC DISTRIBUTION WIDTH 18.5 % (12.0-16.0); RED CELL COUNT 3.25 10/6/uL (4.0-5.6); WHITE BLOOD CELLS 14.7 10/3/uL (4.5-10.5)
[2016-11-12 07:56] LABS: HEMATOCRIT 31.1 % (36.0-48.0); MANUAL DIFF NO %
[2016-11-12 09:30] LABS: A/G RATIO 0.9 (0.7-1.9); ALBUMIN 2.8 G/DL (3.5-5.0); ALKALINE PHOSPHATASE 210 U/L (45-117); BUN (BLOOD UREA NITROGEN) 76 MG/DL (6-23); CALCIUM, SERUM 8.6 MG/DL (8.5-10.4); CHLORIDE, SERUM 100 MMOL/L (96-112); CO2 (CARBON DIOXIDE) 28 MMOL/L (24-34); CREATININE 2.56 MG/DL (0.55-1.02); GFR AFRICAN AMERICAN 24 ML/MIN (>=60); GFR NON AFRICAN AMERICAN 20 ML/MIN (>=60); GLOBULIN 3.1 G/DL (2.5-4.1); GLUCOSE, SERUM 190 MG/DL (60-99); POTASSIUM, SERUM 4.4 MMOL/L (3.5-5.3); SGOT(AST) 12 U/L (5-40); SGPT(ALT) 24 U/L (5-65); SODIUM, SERUM 139 MMOL/L (135-148); TOTAL BILIRUBIN 0.5 MG/DL (0-1.2); TOTAL PROTEIN 5.9 G/DL (6.0-8.5)
[2016-11-12 12:11] LABS: ASCORBIC ACID (UR NOT ORDER) NEG (NEG); BILIRUBIN, URINE NEGATIVE (NEG); KETONE, URINE NEGATIVE (NEG); LEUKOCYTE ESTERASE(NOT OR LARGE (NEG); WBC (NOT ORDERED) (RFLEX) 17 (0-5)
[2016-11-13 06:01] LABS: BASOPHILS 0.1 %; BASOPHILS ABSOLUTE 0.01 10/3/uL (0.0-0.16); EOSINOPHILS 0.2 %; EOSINOPHILS ABSOLUTE 0.03 10/3/uL (0.0-0.53); HEMATOCRIT 32.7 % (36.0-48.0); HEMOGLOBIN 10.7 g/dL (12.0-16.0); IMMATURE GRANULOCYTES 0.3 %; IMMATURE GRANULOCYTES ABSOLUTE 0.04 10/3/uL (0.0-0.11); LYMPHOCYTES 13.7 %; LYMPHOCYTES ABSOLUTE 1.88 10/3/uL (0.67-4.30); MEAN CORPUS HGB CONC 32.7 g/dL (32.0-36.0); MEAN CORPUSCULAR HEMOGLOB 31.8 pg (26.0-34.0); MEAN CORPUSCULAR VOLUME 97.3 fL (80-100); MONOCYTES 8.5 %; MONOCYTES ABSOLUTE 1.16 10/3/uL (0.21-1.20); NEUTROPHILS 77.2 %; NEUTROPHILS ABSOLUTE 10.57 10/3/uL (2.02-8.40); PLATELET COUNT 186 10/3/uL (150-400); RBC DISTRIBUTION WIDTH 18.7 % (12.0-16.0); RED CELL COUNT 3.36 10/6/uL (4.0-5.6); WHITE BLOOD CELLS 13.7 10/3/uL (4.5-10.5)
[2016-11-13 06:20] LABS: MANUAL DIFF NO %
[2016-11-13 06:28] LABS: A/G RATIO 0.9 (0.7-1.9); ALBUMIN 3.1 G/DL (3.5-5.0); BUN (BLOOD UREA NITROGEN) 79 MG/DL (6-23); CALCIUM, SERUM 9.2 MG/DL (8.5-10.4); CHLORIDE, SERUM 98 MMOL/L (96-112); CO2 (CARBON DIOXIDE) 30 MMOL/L (24-34); CREATININE 2.74 MG/DL (0.55-1.02); GFR AFRICAN AMERICAN 22 ML/MIN (>=60); GFR NON AFRICAN AMERICAN 19 ML/MIN (>=60); GLOBULIN 3.6 G/DL (2.5-4.1); GLUCOSE, SERUM 159 MG/DL (60-99); PHOSPHORUS, SERUM 1.8 MG/DL (2.5-4.5); POTASSIUM, SERUM 4.9 MMOL/L (3.5-5.3); SGOT(AST) 11 U/L (5-40); SGPT(ALT) 27 U/L (5-65); SODIUM, SERUM 138 MMOL/L (135-148); TOTAL BILIRUBIN 0.6 MG/DL (0-1.2); TOTAL PROTEIN 6.7 G/DL (6.0-8.5)
[2016-11-13 06:31] LABS: ALKALINE PHOSPHATASE 175 U/L (45-117)
[2016-11-14 07:21] LABS: BASOPHILS 0 %; EOSINOPHILS 0.5 %; EOSINOPHILS ABSOLUTE 0.06 10/3/uL (0.0-0.53); HEMOGLOBIN 8.9 g/dL (12.0-16.0); IMMATURE GRANULOCYTES 0.3 %; IMMATURE GRANULOCYTES ABSOLUTE 0.04 10/3/uL (0.0-0.11); LYMPHOCYTES 17.6 %; LYMPHOCYTES ABSOLUTE 2.16 10/3/uL (0.67-4.30); MEAN CORPUS HGB CONC 32.1 g/dL (32.0-36.0); MEAN CORPUSCULAR HEMOGLOB 31.4 pg (26.0-34.0); MEAN CORPUSCULAR VOLUME 97.9 fL (80-100); MONOCYTES 9.5 %; MONOCYTES ABSOLUTE 1.17 10/3/uL (0.21-1.20); NEUTROPHILS 72.1 %; NEUTROPHILS ABSOLUTE 8.87 10/3/uL (2.02-8.40); PLATELET COUNT 160 10/3/uL (150-400); RBC DISTRIBUTION WIDTH 18.8 % (12.0-16.0); RED CELL COUNT 2.83 10/6/uL (4.0-5.6); WHITE BLOOD CELLS 12.3 10/3/uL (4.5-10.5)
[2016-11-14 07:27] LABS: HEMATOCRIT 27.7 % (36.0-48.0); MANUAL DIFF NO %
[2016-11-14 07:42] LABS: ALBUMIN 2.8 G/DL (3.5-5.0); BUN (BLOOD UREA NITROGEN) 81 MG/DL (6-23); CALCIUM, SERUM 8.6 MG/DL (8.5-10.4); CHLORIDE, SERUM 97 MMOL/L (96-112); CO2 (CARBON DIOXIDE) 30 MMOL/L (24-34); GFR AFRICAN AMERICAN 23 ML/MIN (>=60); GFR NON AFRICAN AMERICAN 20 ML/MIN (>=60); GLUCOSE, SERUM 205 MG/DL (60-99); PHOSPHORUS, SERUM 1.6 MG/DL (2.5-4.5); POTASSIUM, SERUM 4.8 MMOL/L (3.5-5.3); SODIUM, SERUM 138 MMOL/L (135-148)
[2016-11-15 08:46] LABS: BASOPHILS 0 %; EOSINOPHILS 0.5 %; EOSINOPHILS ABSOLUTE 0.06 10/3/uL (0.0-0.53); HEMATOCRIT 30.3 % (36.0-48.0); HEMOGLOBIN 9.7 g/dL (12.0-16.0); IMMATURE GRANULOCYTES 0.2 %; IMMATURE GRANULOCYTES ABSOLUTE 0.02 10/3/uL (0.0-0.11); LYMPHOCYTES 23.1 %; LYMPHOCYTES ABSOLUTE 2.54 10/3/uL (0.67-4.30); MEAN CORPUSCULAR HEMOGLOB 31.7 pg (26.0-34.0); MEAN PLATELET VOLUME 11.8 fL (9.2-13.0); MONOCYTES 7.9 %; MONOCYTES ABSOLUTE 0.87 10/3/uL (0.21-1.20); NEUTROPHILS 68.3 %; NEUTROPHILS ABSOLUTE 7.51 10/3/uL (2.02-8.40); PLATELET COUNT 183 10/3/uL (150-400); RBC DISTRIBUTION WIDTH 18.9 % (12.0-16.0); RED CELL COUNT 3.06 10/6/uL (4.0-5.6)
[2016-11-15 08:47] LABS: MANUAL DIFF NO %
[2016-11-15 09:01] LABS: A/G RATIO 0.8 (0.7-1.9); ALBUMIN 3.1 G/DL (3.5-5.0); ALKALINE PHOSPHATASE 204 U/L (45-117); BUN (BLOOD UREA NITROGEN) 86 MG/DL (6-23); CALCIUM, SERUM 9.1 MG/DL (8.5-10.4); CHLORIDE, SERUM 97 MMOL/L (96-112); CO2 (CARBON DIOXIDE) 33 MMOL/L (24-34); CREATININE 2.48 MG/DL (0.55-1.02); GFR AFRICAN AMERICAN 25 ML/MIN (>=60); GFR NON AFRICAN AMERICAN 21 ML/MIN (>=60); GLOBULIN 3.8 G/DL (2.5-4.1); GLUCOSE, SERUM 267 MG/DL (60-99); PHOSPHORUS, SERUM 2.3 MG/DL (2.5-4.5); POTASSIUM, SERUM 4.4 MMOL/L (3.5-5.3); SGOT(AST) 14 U/L (5-40); SGPT(ALT) 28 U/L (5-65); SODIUM, SERUM 139 MMOL/L (135-148); TOTAL BILIRUBIN 0.5 MG/DL (0-1.2); TOTAL PROTEIN 6.9 G/DL (6.0-8.5)
[2016-11-16 07:12] LABS: BASOPHILS 0.1 %; BASOPHILS ABSOLUTE 0.01 10/3/uL (0.0-0.16); EOSINOPHILS 0.8 %; HEMATOCRIT 32.1 % (36.0-48.0); HEMOGLOBIN 10.3 g/dL (12.0-16.0); IMMATURE GRANULOCYTES 0.3 %; IMMATURE GRANULOCYTES ABSOLUTE 0.04 10/3/uL (0.0-0.11); LYMPHOCYTES 26.3 %; LYMPHOCYTES ABSOLUTE 3.21 10/3/uL (0.67-4.30); MEAN CORPUS HGB CONC 32.1 g/dL (32.0-36.0); MEAN CORPUSCULAR HEMOGLOB 31.9 pg (26.0-34.0); MEAN CORPUSCULAR VOLUME 99.4 fL (80-100); MEAN PLATELET VOLUME 12.1 fL (9.2-13.0); MONOCYTES 6.6 %; MONOCYTES ABSOLUTE 0.81 10/3/uL (0.21-1.20); NEUTROPHILS 65.9 %; NEUTROPHILS ABSOLUTE 8.02 10/3/uL (2.02-8.40); RBC DISTRIBUTION WIDTH 18.8 % (12.0-16.0); RED CELL COUNT 3.23 10/6/uL (4.0-5.6); WHITE BLOOD CELLS 12.2 10/3/uL (4.5-10.5)
[2016-11-16 07:13] LABS: MANUAL DIFF NO %; PLATELET COUNT 240 10/3/uL (150-400)
[2016-11-16 07:35] LABS: A/G RATIO 0.8 (0.7-1.9); ALBUMIN 3.3 G/DL (3.5-5.0); CALCIUM, SERUM 9.5 MG/DL (8.5-10.4); CHLORIDE, SERUM 100 MMOL/L (96-112); CO2 (CARBON DIOXIDE) 30 MMOL/L (24-34); CREATININE 2.24 MG/DL (0.55-1.02); GFR AFRICAN AMERICAN 28 ML/MIN (>=60); GFR NON AFRICAN AMERICAN 24 ML/MIN (>=60); GLOBULIN 3.9 G/DL (2.5-4.1); PHOSPHORUS, SERUM 2.5 MG/DL (2.5-4.5); POTASSIUM, SERUM 4.2 MMOL/L (3.5-5.3); SGOT(AST) 16 U/L (5-40); SGPT(ALT) 30 U/L (5-65); SODIUM, SERUM 140 MMOL/L (135-148); TOTAL BILIRUBIN 0.6 MG/DL (0-1.2); TOTAL PROTEIN 7.2 G/DL (6.0-8.5)
[2016-11-16 07:37] LABS: ALKALINE PHOSPHATASE 165 U/L (45-117); BUN (BLOOD UREA NITROGEN) 82 MG/DL (6-23); GLUCOSE, SERUM 111 MG/DL (60-99)
[2016-11-16] MEDS ORDERED: DEMA100 PO (12:10)
== END 2016-11-16 18:00 | disposition home or self-care (01) | DRG 682 ==
LOC: ER 02:02 → 2SO 04:47
PROVIDERS: Hospitalist; Internal Medicine Pulmonary Disease; Nurse Practitioner; Registered Nurse
DX: N17.9 Acute kidney failure, unspecified (principal); I50.33 Acute on chronic diastolic (congestive) heart failure; E11.22 Type 2 diabetes mellitus with diabetic chronic kidney disease; K31.84 Gastroparesis; E10.43 Type 1 diabetes mellitus with diabetic autonomic (poly)neuropathy; I36.1 Nonrheumatic tricuspid (valve) insufficiency; E10.65 Type 1 diabetes mellitus with hyperglycemia; I13.0 Hypertensive heart and chronic kidney disease with heart failure and stage 1 through stage 4 chronic kidney disease, or unspecified chronic kidney disease; N39.0 Urinary tract infection, site not specified; N18.4 Chronic kidney disease, stage 4 (severe); I45.81 Long QT syndrome; R07.9 Chest pain, unspecified; D86.9 Sarcoidosis, unspecified; J45.909 Unspecified asthma, uncomplicated; B96.20 Unspecified Escherichia coli [E. coli] as the cause of diseases classified elsewhere; F31.9 Bipolar disorder, unspecified; R91.8 Other nonspecific abnormal finding of lung field; R00.0 Tachycardia, unspecified; I34.0 Nonrheumatic mitral (valve) insufficiency; R31.9 Hematuria, unspecified; I35.1 Nonrheumatic aortic (valve) insufficiency; D64.9 Anemia, unspecified; E66.9 Obesity, unspecified; K59.00 Constipation, unspecified; Z88.0 Allergy status to penicillin; Z79.4 Long term (current) use of insulin; Z84.1 Family history of disorders of kidney and ureter; Z88.8 Allergy status to other drugs, medicaments and biological substances; Z79.82 Long term (current) use of aspirin; Z68.37 Body mass index [BMI] 37.0-37.9, adult; Z79.899 Other long term (current) drug therapy
CPT/HCPCS: 36415; 71010; 71020; 71250; 74176; 76775; 80048; 80053; 80069; 80076; 81001; 82009; 82570; 82962; 83036; 83690; 83735; 83880; 84100; 84133; 84156; 84300; 84443; 84484; 84540; 85025; 85610; 85730; 86850; 86900; 86901; 86920; 87077; 87086; 87186; 93005; 93306; 94640; 96374; 96375; 97116-GP; 97161-GP; 99285; A9270-GY; G8978-CK-GP; G8979-CI-GP; J0360; J1170; J1200; J1205; J1980; J2405; J2550; J2930

== ENCOUNTER 2016-11-26 15:13 | Inpatient (IN) | payer MEDICARE ==
--- NOTE | ~2016-11-26 | HP ---
History And Physical [address] [id number] [place]. [address] NAME: MOON REILLY : 64 STATUS : ADM IN [facility]#: [id number] AGE: 56 ADM/REG DATE : 11/26/16 MR#: [id number] REPORT SERV DATE: 11/27/16 DICTATED BY: ROSALBA NELSON DATE: 11/27/16 REPORT STATUS : Draft TRANSCRIBED BY: MODL DATE: 11/27/16 DATE OF ADMISSION: 11/26/2016 REASON FOR ADMISSION: Severe hyperglycemia, acute kidney injury, and encephalopathy. HISTORY OF PRESENT ILLNESS: Ms Reilly is a 56-year-old with type 2 diabetes, chronic kidney disease, hypertension, bipolar disorder, diastolic congestive heart failure and sarcoidosis, because of recent hospitalization for abdominal pain, nausea, vomiting, anasarca, UTI, and renal failure she was felt to have gastroparesis. She received diuretics for heart failure diagnosed with an ejection fraction of 20%, had recovered satisfactorily, and discharged on 11/16/2016. Subsequently, she says that she has been compliant with medication, but over the last couple of days her sugar was not able to be controlled and she developed increasing confusion and agitation. Upon arrival to the hospital, she was found to have a glucose greater than 700. The patient is very lethargic, she gives a little history since she falls asleep quickly and become very distracted, when she is awake she complains mostly of fear and fright. Denies pain of any kind. No chest pain. No abdominal pain. No limb pain. She denies shortness of breath. No nausea, vomiting, or diarrhea. However, history is very difficult to obtain and not necessarily reliable. REVIEW OF SYSTEMS: Could not be obtained. PAST MEDICAL HISTORY: As mentioned above. She is known to have peripheral neuropathy. MEDICATIONS: 1. Torsemide. 2. Coreg. 3. Ativan. 4. Seroquel. 5. Prednisone 40 mg daily as presumably for the sarcoidosis. 6. [place]. 7. Lisinopril. 8. She was prescribed Duricef essentially for the UTI. ALLERGIES: TO PENICILLIN AND HALDOL. FAMILY HISTORY: Significant for end-stage renal disease in multiple relatives. SOCIAL HISTORY: No tobacco, alcohol, or drugs. PHYSICAL EXAMINATION: VITAL SIGNS: On presentation, blood pressure 133/77, pulse 80, respiration 19, afebrile, and saturating 99%. GENERAL: She is tearful, crying, but yet falls asleep very easily with evident delirium in moderate psychiatric distress, but no respiratory distress. HEENT: Pupils are equal, round, and reactive to light. Extraocular movements are intact. History And Physical [place] [address] [place]. [address] NAME: MOON REILLY : 64 STATUS : ADM IN PAT#: [id number] AGE: 56 ADM/REG DATE : 11/26/16 MR#: [id number] REPORT SERV DATE: 11/27/16 DICTATED BY: ROSALBA NELSON DATE: 11/27/16 REPORT STATUS : Draft TRANSCRIBED BY: ALEK DATE: 11/27/16 No cranial nerve deficits. She had moist mucous membranes, but significant pallor. Numerous skin scars on her face. NECK: Revealed jugular venous pulsation about 6 to 8 cm of water. No carotid bruit, lymphadenopathy, or goiter. CARDIAC: Regular rate and rhythm. No murmurs, gallops, or rubs. A very wide point of maximum impulse was noted. LUNGS: Clear to auscultation bilaterally with good excursion, somewhat tachypneic. ABDOMEN: Soft and nontender. Bowel sounds are hypoactive. EXTREMITIES: 3+ edema bilaterally with skin tear, actually weeping was present qualifying for 4+ in places. She had good pulses, but delayed capillary refill. NEUROLOGIC: She had 4/5 strength in all four extremities. Diminished sensation in her feet. Catheter placement was pending. SKIN: Cool and dry. LABORATORY EVALUATION: The pH 7.43, pCO2 of 38, and pO2 of 81. Sodium 131, potassium 4.0, chloride 91, bicarb 25, BUN 84, creatinine 2.4, glucose 716, and lipase 3181. White count 11,000, H and H 11/33, and platelets 183. Chest x-ray, reviewed by me showed no apparent disease, some prominent brenna were noted. Urinalysis was negative and no proteinuria was evident on a urine protein, recently was also negative. EKG was normal sinus rhythm. ASSESSMENT/PLAN: 1. Type 2 diabetes, uncontrolled with severe hyperglycemia, likely due to noncompliance. There is some ketotic aroma to breath; however, no ketones were found in her urine and she does not appear to be acidotic, although at this time she may have an incipient DKA in the setting of type 2 diabetes. An insulin infusion will be initiated. We will diminish the prednisone therapy, but hydrate her only gently. We do anticipate polyuria and polydipsia; however, she has evident volume overload already. 2. Encephalopathy likely due to hyperosmolality which is close to 350. Treatment of the glucose and the BUN most importantly, we anticipate with a gentle hydration and insulin, her osmolality will improve substantially. She will not be fed for the present time. 3. Chronic systolic congestive heart failure. Intravascularly appears possibly somewhat depleted, although this may be due to low cardiac output. She obviously has severe leg edema. The possibility of a cold and wet CHF from pump failure is a consideration, and ionotropic support may be needed. If her blood pressure drops we will go ahead and initiate digoxin. TERRY inhibitor is obviously not been tolerated with creatinine rising to 2.2 to 2.9. Given her race BiDil may be more appropriate, anyway it will be initiated for her cardiorenal issues. I am particularly worried that the edema however is out of proportion to her congestive heart failure status and her History And Physical [address] [address] NAME: MOON REILLY : 64 STATUS : ADM IN [facility]#: [id number] AGE: 56 ADM/REG DATE : 11/26/16 MR#: [id number] REPORT SERV DATE: 11/27/16 DICTATED BY: ROSALBA NELSON DATE: 11/27/16 REPORT STATUS : Draft TRANSCRIBED BY: MODL DATE: 11/27/16 albumin is only 3.4, we should rule out deep venous thrombosis in both legs and consider lymphedema therapies. The patient had changed recently from Lasix to torsemide, we will neither at this time. 4. Acute kidney injury on chronic kidney disease with possible intravascular hypovolemia. She had an elevated fractionation of sodium on 11/13/2016. Her total body water is elevated. Mobilizing her current fluids is appropriate. Veloz catheter replaced. We will be checking a CPK, although neuroleptic malignant syndrome is not anticipated. Discontinue the TERRY inhibitor. 5. Elevated lipase, nearly pathic pneumonic for pancreatitis, although the patient has no abdominal pain. This may be distorted by her delirium. I am concerned in the setting of hyperglycemia that she may have severe hypertriglyceridemia and however, we will also need to rule out gallstones. 6. Sarcoidosis with significant skin symptoms and hilar lymphadenopathy. The patient is on very high doses of prednisone, this may also be exacerbating her mental status and her glucose hyperglycemia, we will try to diminish this dose to final lowest effective therapy. 7. Bipolar disorder. The patient is on no specific bipolar therapy she may have been diagnosed with mixed bipolar disease which is often confounded by personality disorders. We will continue to schedule her Seroquel, use Ativan p.r.n., but at the family's request we will go ahead and get a Psychiatric consultation regarding an appropriate diagnosis and treatment plan. ALEX/ALEK Rosalba Nelson M.D. / [id number] CC: Lee Tellez M.D.
--- NOTE | ~2016-11-26 | DS ---
Discharge Summary [facility] [address] [facility] [place]. [address] NAME: CARON REILLY : 64 STATUS : DIS IN PAT#: [id number] AGE: 56 ADM/REG DATE : 11/26/16 MR#: [id number] REPORT SERV DATE: 12/11/16 DICTATED BY: RJ MARQUEZ DATE: 12/10/16 REPORT STATUS : Draft TRANSCRIBED BY: MODL DATE: 12/10/16 ADMISSION DATE: 11/26/2016 DISCHARGE DATE: 12/10/2016 CONDITION ON DISCHARGE: Stable. DISPOSITION: Discharge to home with home health nurse for assistance with medication administration. DIAGNOSIS ON DISCHARGE: 1. Bipolar disorder - acute manic phase that has finally stabilized and the patient is stable with current regimen of medications per our psychiatrist, Dr. James's, advice. 2. Chronic cardiomyopathy with an ejection fraction of 20% - the patient has been on optimal doses of medications including beta oneyda, diuretic, digoxin, and hydralazine at this time. The patient is not on any TERRY inhibitor or ARB because of her kidney function status, and the patient does have chronic kidney disease, stage IV at this time. Baseline creatinine is around 1.9 to 2. 3. Diabetes mellitus - insulin requiring. The patient has been given a prescription for long-acting insulin currently, and I will dictate her medication list in the following paragraph. 4. History of sarcoidosis - it is stable at this time, and they even got a CT scan of the brain that did not show any evidence of any neurosarcoidosis. Hence, the patient's prednisone has been tapered down to 10 mg once a day which will probably be her maintenance dose. BRIEF HOSPITAL COURSE: Please also refer to interim discharge summary dictated by my partner, Dr. Cristóbal Headley. I took over this patient's care on 12/08/2016, and for the last two days that I have taken care of this patient, even though she has had episodes of emotional lability and crying episodes, in the last 24 hours, the patient has been doing great. Dr. James, our psychiatrist, re-evaluated her and decided that she is stable to go home with home health nurse as long as there is supportive family. Family is willing to take her back home. Hence, she is being discharged home today with home health nursing to assist her with med administration every day. The following medications will be her home regimen: 1. Coreg 12.5 mg p.o. b.i.d. 2. Digoxin 0.125 mg p.o. daily. 3. Medium dose or insulin sliding scale, NovoLog insulin, which the patient already has at home. 4. MiraLAX powder, one packet powder, one to two times a day p.r.n. for constipation. 5. Seroquel 100 mg p.o. daily in the morning and 200 mg p.o. at bedtime (at bedtime). 6. Demadex 20 mg p.o. daily. 7. K-Dur 10 mEq p.o. once a day. 8. Hydralazine 25 mg p.o. t.i.d. 9. Prednisone 10 mg p.o. q.a.m. 10.Levemir insulin 20 units subcutaneously once a day. 11.Klonopin 1 mg p.o. t.i.d. p.r.n. for agitation. Discharge Summary [address] [address] NAME: CARON REILLY : 64 STATUS : DIS IN PAT#: [id number] AGE: 56 ADM/REG DATE : 11/26/16 MR#: [id number] REPORT SERV DATE: 12/11/16 DICTATED BY: RJ MARQUEZ DATE: 12/10/16 REPORT STATUS : Draft TRANSCRIBED BY: ALEK DATE: 12/10/16 The patient specifically will stop the following home medications and this will be the higher dose of prednisone of 40 mg; remember, I have reduced it to 10 mg. The patient will also stop her Lasix and Protonix at this time. The patient will also not be needing any Nexium. Off note again, the patient's Seroquel has been changed and the dosage currently will be 100 mg p.o. q.a.m. and 200 mg p.o. q.p.m., and she seems to be doing well with the current dose. On the day of discharge, I have the following labs on this patient. Today her CBC shows a WBC count of 8.8, hemoglobin 10.5, hematocrit 32.2, and platelet count of 259. Electrolyte profile shows sodium 148, potassium 3.8, BUN is 37, and creatinine is 1.9, which is her baseline. Sugar levels are better controlled and most blood glucose levels have been under 200 in the last 24 hours. Hence, the patient is being sent home in stable condition with home health with advice to follow up with outpatient psychiatrist within a week and outpatient primary care physician within the next one to two weeks. I have spent about 40 minutes in coordinating discharge care of this patient including face- to-face encounter and summarizing this discharge. JAYLEEN/ALEK Rj Marquez M.D. / [id number] CC: Lee Warner M.D.
--- NOTE | ~2016-11-26 | IDS ---
Interim Discharge Summary [facility] [address] [place]. [address] NAME: CARON REILLY : 64 STATUS : ADM IN PAT#: [id number] AGE: 56 ADM/REG DATE : 11/26/16 MR#: [id number] REPORT SERV DATE: 11/30/16 DICTATED BY: STANLEY BLAKE DATE: 11/30/16 REPORT STATUS : Draft TRANSCRIBED BY: MODL DATE: 11/30/16 ADMISSION DATE: 11/26/2016 DISCHARGE DATE: REASON FOR ADMISSION: This is a 56-year-old diabetic who came in with severe hyperglycemia, acute kidney injury, encephalopathy. She has a history of bipolar disorder as well. INTERMIN DISCHARGE DIAGNOSES: 1. Severe bipolar disorder. 2. Diabetes type 2. 3. Systolic congestive heart failure with EF of 20%. 4. Acute kidney injury on chronic kidney disease. 5. Sarcoidosis. 6. Elevated lipase, no pancreatitis, unclear etiology. 7. Urine culture positive for Escherichia coli colonization. 8. Chronic low back pain. HOSPITAL COURSE: The patient admitted with hyperglycemia but after admission the patient was crying and complaining of pain just lying in bed, and then was placed on Seroquel and was largely out of it for the first 24 to 36 hours after being placed on Seroquel, but was also requesting a lot of pain medicine due to her low back pain. After consultation with Dr. James and having monitored the patient over the weekend it becomes abundantly clear that the patient's primary issue is her bipolar and depression. She is often seen by nursing and myself crying in bed since Dr. James placed her on scheduled Ativan and Seroquel, the patient has become more controlled and had some improvement but overall she today was rocking in bed crying, and she is just not fit to go home so the patient has agreed to inpatient psych and she has been referred to [facility] although that was done late in the day today because their phone systems were down, so we will find out the status of their beds and whether they can take her likely tomorrow. The patient was given IV fluids for acute kidney injury and her creatinine which was 2.87 on admission has trended down to 2.24 but her baseline creatinine is about 2.5 to 2.8. CURRENT MEDICATIONS: 1. Carvedilol 12.5 mg p.o. b.i.d. 2. Digoxin 0.125 mg p.o. daily. 3. NovoLog 8 units a.c. 4. Levemir 30 units subcutaneous daily. 5. Klonopin 1 mg q.a.m. and 2 mg at bedtime. 6. Protonix 40 mg p.o. daily. 7. MiraLAX one packet p.o. b.i.d. 8. Seroquel 100 mg p.o. q.8 hours. 9. Torsemide 20 mg p.o. daily. 10.Hydralazine 25 mg p.o. q.8 hours. 11.Prednisone 20 mg p.o. daily. CURRENT PLAN: Case Management having to arrange inpatient psychiatric care for the patient. Interim Discharge Summary [address]. [address] NAME: CARON REILLY : 64 STATUS : ADM IN [facility]#: [id number] AGE: 56 ADM/REG DATE : 11/26/16 MR#: [id number] REPORT SERV DATE: 11/30/16 DICTATED BY: STANLEY BLAKE DATE: 11/30/16 REPORT STATUS : Draft TRANSCRIBED BY: ALEK DATE: 11/30/16 If this is unable to be arranged, then the next alternative would be Home Health with outpatient psych follow up. The patient care to be assumed by Ferny Kee and Parminder Lara this week. BONNIE/RAJL Stanley Blake APN / [id number] CC: Lee Tellez M.D. Denis Kennedy, M.D.
--- NOTE | ~2016-11-26 | CN ---
Consultation Report [facility] [address] [place]. [address] NAME: CARON REILLY : 64 STATUS : ADM IN PAT#: [id number] AGE: 56 ADM/REG DATE : 11/26/16 MR#: [id number] REPORT SERV DATE: 11/27/16 DICTATED BY: GIBRAN BURRELL DATE: 11/27/16 REPORT STATUS : Draft TRANSCRIBED BY: MODJazmine DATE: 11/27/16 PSYCHIATRIC CONSULTATION DATE OF CONSULTATION: 11/27/2016 I reviewed the patient's current and old medical records. I discussed the patient's status with Dr. Calero. I discussed patient's history with her son. HISTORY OF PRESENT ILLNESS: She was admitted with severe hyperglycemia, acute kidney injury, and encephalopathy. Her blood sugar at admission was over 700. PAST PSYCHIATRIC HISTORY: I previously saw her in consultation on 07/13/2016, when she was admitted with shortness of breath, acute on chronic kidney disease, and heart failure. She gave a history at that time of episodic insomnia and mood swings for most if not all of her adult life. I recommended that she should follow up at a local mental health clinic, but she said she wanted to discuss this option with her PCP before deciding to do so. Her son now tells me that she never did follow up with the mental health clinic. MEDICATIONS: Her current home medication list included Ativan 1 mg b.i.d. p.r.n. and Seroquel 100 mg b.i.d. p.r.n. SOCIAL HISTORY: She lives alone. In the past, she reported that she is very involved with her grandchildren and her presybeterian. MENTAL STATUS: She was tearful and restless. She said that she had severe low back pain. Her affect was labile. Her thinking was logical. She had no delusions. She had no hallucinations. She was unable to answer orientation questions because of her preoccupation with pain. DIAGNOSIS: Bipolar disorder, not otherwise specified. RECOMMENDATIONS: I will increase the Seroquel to 100 mg p.o. t.i.d. and I will add a fixed dose of Ativan 1 mg q.h.s. I will follow up on 11/30/2016. HANNY/ALEK Gibran Burrell M.D. / [id number] CC: Jake Calero M.D. Consultation Report [place] [address] [facility] [facility] [address] [address] [address] NAME: CARON REILLY : 64 STATUS : ADM IN PAT#: [id number] AGE: 56 ADM/REG DATE : 11/26/16 MR#: [id number] REPORT SERV DATE: 11/27/16 DICTATED BY: GIBRAN BURRELL DATE: 11/27/16 REPORT STATUS : Draft TRANSCRIBED BY: MODL DATE: 11/27/16 Christiano Zuleta M.D.
--- NOTE | ~2016-11-26 | IDS ---
Interim Discharge Summary [facility] [address] [place]. [address] NAME: CARON REILLY : 64 STATUS : ADM IN PAT#: [id number] AGE: 56 ADM/REG DATE : 11/26/16 MR#: [id number] REPORT SERV DATE: 12/06/16 DICTATED BY: DATE: REPORT STATUS : Draft TRANSCRIBED BY: MODL DATE: 12/06/16 ADMISSION DATE: 11/26/2016 DISCHARGE DATE: INTERIM DISCHARGE DIAGNOSES: 1. Bipolar disorder. 2. Diabetes mellitus type 2. 3. Systolic heart failure with an ejection fraction of 20%. 4. Chronic kidney disease stage 3. 5. Sarcoidosis. CONSULTING PHYSICIANS: Include Dr. Gibran James with Psychiatry. For a full H and P, please refer to Dr. Jake Calero's dictation on 11/26/2016. Please also see Dr. Gibran James's consultation dictation on 11/26/2016 as well as Mr. Stanley Simms's interim discharge summary on 11/30/2016. HOSPITAL COURSE/PROBLEM LIST: I took over the care of this patient on 12/01/2016 from Stanley Simms and Dr. Jake Calero. At that time, we were waiting on inpatient psychiatric placement. This has been quite difficult to find placement for her. Currently, we are trying to get her placed in [facility]. Dr. Gibran James has filled out a certificate of need because the patient is unable to take care of herself at home. She is not taking her medications or taking care of herself. Her family agrees with placement. She is currently on Seroquel, Klonopin, and Geodon. Seroquel and Klonopin were working somewhat, but as the week went on her psychosis progressed. She has been crying and inconsolable. I started Geodon on 12/04/2016, which seems to have helped. The patient is sleeping more. She is arousable to voice. However, when she is awake, she is again crying and inconsolable. She is alert and oriented x2 and will follow commands. She seems to have a grasp on what is going on, but she does not want to go to a psychiatric facility. She wants to go home. She is medically stable and ready for transfer as soon as we get placement. Her blood sugars have been somewhat hard to control due to the fact that her diet is very sporadic, sometime she eats and sometime she does not. I have had to cut back on her insulin to keep her from getting hypoglycemic. Currently, she is on 20 units of Levemir daily in a sliding scale. Initially when she was admitted, her blood sugar was in the 700s. Clearly, she was not taking her insulin as prescribed. She has chronic kidney disease stage 3. Her last creatinine was 2.11 and stable. She has sarcoidosis for which she takes prednisone 20 mg p.o. daily. She initially was on 40 mg prior to admission; however, this was reduced due to the psychiatric issues. As requested from Baylee Dean, I got a CT scan of the head without contrast on 12/06/2016 to rule out neurosarcoidosis and there is no sign of this on the CT scan. Again, the patient is medically stable and ready for discharge as soon as we get placement. Her last blood pressure was 145/85, heart rate 104, temperature 98.5, and O2 saturation 98% on room air. CLR/MODL Interim Discharge Summary [address] [address] NAME: CARON REILLY : 64 STATUS : ADM IN [facility]#: [id number] AGE: 56 ADM/REG DATE : 11/26/16 MR#: [id number] REPORT SERV DATE: 12/06/16 DICTATED BY: DATE: REPORT STATUS : Draft TRANSCRIBED BY: MODL DATE: 12/06/16 Medhat Lara NP / [id number] CC: MD Christiano Stratton M.D.
[~2016-11-26 15:13] MED LIST changes: +DEMA100 PO; +P20 PO; +PR25 PO; +TRIAMCINOLONE O80 GM TOP
[2016-11-26 16:20] LABS: BASOPHILS 0 %; EOSINOPHILS 0.1 %; EOSINOPHILS ABSOLUTE 0.01 10/3/uL (0.0-0.53); ER CBC TAT 0 Hrs 03 Mins; HEMATOCRIT 33.2 % (36.0-48.0); HEMOGLOBIN 11.4 g/dL (12.0-16.0); IMMATURE GRANULOCYTES 0.2 %; IMMATURE GRANULOCYTES ABSOLUTE 0.02 10/3/uL (0.0-0.11); LYMPHOCYTES 4.6 %; LYMPHOCYTES ABSOLUTE 0.49 10/3/uL (0.67-4.30); MEAN CORPUSCULAR HEMOGLOB 32.9 pg (26.0-34.0); MEAN PLATELET VOLUME 12.6 fL (9.2-13.0); MONOCYTES 4.6 %; MONOCYTES ABSOLUTE 0.49 10/3/uL (0.21-1.20); NEUTROPHILS 90.5 %; NEUTROPHILS ABSOLUTE 9.57 10/3/uL (2.02-8.40); PLATELET COUNT 183 10/3/uL (150-400); RBC DISTRIBUTION WIDTH 16.6 % (12.0-16.0); RED CELL COUNT 3.46 10/6/uL (4.0-5.6); WHITE BLOOD CELLS 10.6 10/3/uL (4.5-10.5)
[2016-11-26 16:21] LABS: MANUAL DIFF NO %; MEAN CORPUS HGB CONC 34.3 g/dL (32.0-36.0)
[2016-11-26 16:34] LABS: BE (BASE EXCESS) 0.5 MEQ/L (0 +/- 2.5); CARBOXYHEMOGLOBIN 1.6 % (0-3); HCO3 (ACTUAL BICARBONATE) 24.6 MEQ/L (23-27); HEMOBLOGIN CONTENT 11.2 G/DL (12-16); INSTRUMENT SERIAL # 8087; METHEMOGLOBIN 0.1 % (0-3); O2 CONTENT 14.8 VOL% (18-24); PCO2 (CO2 TENSION) 38 MMHG (35-45); PO2 (O2 TENSION) 81 MMHG (79-93); SAMPLE Arterial; pH 7.43 (7.37-7.43)
[2016-11-26 16:35] LABS: ALLENS TEST Pos
[2016-11-26 16:35] LABS: INTERNATIONAL NORMAL RATI 1.1 UNITS (-); PARTIAL THROMBO TIME 26.2 SEC (22.5-37.2); PROTIME (NOT ORD) 13.9 SEC (12.0-14.5)
[2016-11-26 16:37] LABS: ALBUMIN 3.4 G/DL (3.5-5.0); BUN (BLOOD UREA NITROGEN) 84 MG/DL (6-23); CALCIUM, SERUM 9.2 MG/DL (8.5-10.4); CHEST PAIN PROFILE TAT 0 Hrs 20 Mins; CHLORIDE, SERUM 91 MMOL/L (96-112); SGPT(ALT) 48 U/L (5-65); TOTAL BILIRUBIN 0.8 MG/DL (0-1.2); TOTAL PROTEIN 6.8 G/DL (6.0-8.5); TROPONIN I <0.02 NG/ML (<0.05)
[2016-11-26 16:38] LABS: CO2 (CARBON DIOXIDE) 25 MMOL/L (24-34); CREATININE 2.87 MG/DL (0.55-1.02); GFR AFRICAN AMERICAN 21 ML/MIN (>=60); GFR NON AFRICAN AMERICAN 18 ML/MIN (>=60); GLUCOSE, SERUM 716 MG/DL (60-99); POTASSIUM, SERUM 4.6 MMOL/L (3.5-5.3); SODIUM, SERUM 131 MMOL/L (135-148)
[2016-11-26 16:39] LABS: ALKALINE PHOSPHATASE 180 U/L (45-117); DIRECT BILIRUBIN 0.2 MG/DL (0.0-0.4); INDIRECT BILIRUBIN(NOT ORDER) 0.6 MG/DL (0.1-0.9); SGOT(AST) 18 U/L (5-40)
[2016-11-26 17:02] LABS: ASCORBIC ACID (UR NOT ORDER) NEG (NEG); BILIRUBIN, URINE NEGATIVE (NEG); ER URINALYSIS TAT 0 Hrs 10 Mins; KETONE, URINE NEGATIVE (NEG); LEUKOCYTE ESTERASE(NOT OR SMALL (NEG); NITRITE (URINE) NEG (NEG); WBC (NOT ORDERED) (RFLEX) 5 (0-5)
[2016-11-26 17:23] LABS: ACETONE NEG
[2016-11-26] MEDS ORDERED: BACTRIM DS1 TAB PO (17:53)
[2016-11-26] MEDS ORDERED: NORCO1 TA1 PO (17:53)
[2016-11-26] MEDS ORDERED: P20 PO (17:53)
[2016-11-26] MEDS ORDERED: PRIN20 PO (17:54)
[2016-11-26] MEDS ORDERED: SEROQUEL50 MG PO (17:54)
[2016-11-26] MEDS ORDERED: COREG25 PO (17:54)
[2016-11-26] MEDS ORDERED: NEXIUM20 M1 PO (17:54)
[2016-11-26] MEDS ORDERED: L80 PO (17:55)
[2016-11-26] MEDS ORDERED: ATV1 PO (17:55)
[2016-11-26] MEDS ORDERED: HUMULIN N1 ML SC (17:55)
[2016-11-26] MEDS ORDERED: COMBIVENT RESPIM4 GM INH (17:55)
[2016-11-26] MEDS ORDERED: NOVOLOG SC (17:56)
[2016-11-26 22:13] LABS: AMPHETAMINES (NOT ORD) NEG (NEG); BARBITURATES (NOT ORDERED NEG (NEG); BENZODIAZEPINES (NOT ORD) POS (NEG); CANNABINOIDS (THC) NEG (NEG); COCAINE (NOT ORDERED) NEG (NEG); OPIATES POS (NEG); PHENCYCLIDINE(PCP) NEG (NEG); TRICYCLICS NEG (NEG)
[2016-11-27 01:16] LABS: PROCALCITONIN 0.2 ng/mL (<0.5)
[2016-11-27 06:10] LABS: BASOPHILS 0 %; EOSINOPHILS 0 %; HEMOGLOBIN 9.8 g/dL (12.0-16.0); IMMATURE GRANULOCYTES 0.3 %; IMMATURE GRANULOCYTES ABSOLUTE 0.03 10/3/uL (0.0-0.11); LYMPHOCYTES 9.9 %; LYMPHOCYTES ABSOLUTE 0.93 10/3/uL (0.67-4.30); MEAN CORPUS HGB CONC 34.6 g/dL (32.0-36.0); MEAN CORPUSCULAR HEMOGLOB 32.2 pg (26.0-34.0); MEAN PLATELET VOLUME 12.2 fL (9.2-13.0); MONOCYTES 5.8 %; MONOCYTES ABSOLUTE 0.54 10/3/uL (0.21-1.20); NEUTROPHILS ABSOLUTE 7.87 10/3/uL (2.02-8.40); PLATELET COUNT 141 10/3/uL (150-400); RBC DISTRIBUTION WIDTH 16.1 % (12.0-16.0); RED CELL COUNT 3.04 10/6/uL (4.0-5.6); WHITE BLOOD CELLS 9.4 10/3/uL (4.5-10.5)
[2016-11-27 06:11] LABS: HEMATOCRIT 28.3 % (36.0-48.0); MANUAL DIFF NO %; MEAN CORPUSCULAR VOLUME 93.1 fL (80-100)
[2016-11-27 06:25] LABS: CALCIUM, SERUM 8.8 MG/DL (8.5-10.4); CHLORIDE, SERUM 100 MMOL/L (96-112); CO2 (CARBON DIOXIDE) 29 MMOL/L (24-34); PHOSPHORUS, SERUM 2.9 MG/DL (2.5-4.5); SGOT(AST) 6 U/L (5-40); SGPT(ALT) 34 U/L (5-65); TOTAL BILIRUBIN 0.9 MG/DL (0-1.2)
[2016-11-27 06:27] LABS: ALBUMIN 2.7 G/DL (3.5-5.0); ALKALINE PHOSPHATASE 135 U/L (45-117); BUN (BLOOD UREA NITROGEN) 74 MG/DL (6-23); CREATININE 2.29 MG/DL (0.55-1.02); GFR AFRICAN AMERICAN 27 ML/MIN (>=60); GFR NON AFRICAN AMERICAN 23 ML/MIN (>=60); GLOBULIN 2.6 G/DL (2.5-4.1); GLUCOSE, SERUM 108 MG/DL (60-99); POTASSIUM, SERUM 3.3 MMOL/L (3.5-5.3); SODIUM, SERUM 141 MMOL/L (135-148); TOTAL PROTEIN 5.3 G/DL (6.0-8.5)
[2016-11-28 04:50] LABS: CALCIUM, SERUM 8.6 MG/DL (8.5-10.4); CHLORIDE, SERUM 103 MMOL/L (96-112); CO2 (CARBON DIOXIDE) 31 MMOL/L (24-34); CREATININE 2.36 MG/DL (0.55-1.02); GFR AFRICAN AMERICAN 26 ML/MIN (>=60); GFR NON AFRICAN AMERICAN 23 ML/MIN (>=60); PHOSPHORUS, SERUM 2.1 MG/DL (2.5-4.5); POTASSIUM, SERUM 3.8 MMOL/L (3.5-5.3); SODIUM, SERUM 144 MMOL/L (135-148)
[2016-11-28 05:12] LABS: BUN (BLOOD UREA NITROGEN) 63 MG/DL (6-23); GLUCOSE, SERUM 211 MG/DL (60-99)
[2016-11-29 04:04] LABS: BASOPHILS 0 %; EOSINOPHILS 0.1 %; EOSINOPHILS ABSOLUTE 0.01 10/3/uL (0.0-0.53); HEMATOCRIT 34.3 % (36.0-48.0); HEMOGLOBIN 11.3 g/dL (12.0-16.0); IMMATURE GRANULOCYTES 0.2 %; IMMATURE GRANULOCYTES ABSOLUTE 0.02 10/3/uL (0.0-0.11); LYMPHOCYTES 13.2 %; LYMPHOCYTES ABSOLUTE 1.24 10/3/uL (0.67-4.30); MANUAL DIFF NO %; MEAN CORPUS HGB CONC 32.9 g/dL (32.0-36.0); MEAN CORPUSCULAR HEMOGLOB 32.3 pg (26.0-34.0); MEAN PLATELET VOLUME 12.4 fL (9.2-13.0); MONOCYTES 8.9 %; MONOCYTES ABSOLUTE 0.83 10/3/uL (0.21-1.20); NEUTROPHILS 77.6 %; NEUTROPHILS ABSOLUTE 7.27 10/3/uL (2.02-8.40); PLATELET COUNT 129 10/3/uL (150-400); RBC DISTRIBUTION WIDTH 16.3 % (12.0-16.0); WHITE BLOOD CELLS 9.4 10/3/uL (4.5-10.5)
[2016-11-29 04:14] LABS: CALCIUM, SERUM 8.7 MG/DL (8.5-10.4); CHLORIDE, SERUM 104 MMOL/L (96-112); CO2 (CARBON DIOXIDE) 31 MMOL/L (24-34); CREATININE 2.24 MG/DL (0.55-1.02); GFR AFRICAN AMERICAN 28 ML/MIN (>=60); GFR NON AFRICAN AMERICAN 24 ML/MIN (>=60); GLUCOSE, SERUM 215 MG/DL (60-99); POTASSIUM, SERUM 3.8 MMOL/L (3.5-5.3); SODIUM, SERUM 143 MMOL/L (135-148)
[2016-11-29 04:15] LABS: BUN (BLOOD UREA NITROGEN) 57 MG/DL (6-23)
[2016-12-03 06:50] LABS: BASOPHILS 0.1 %; BASOPHILS ABSOLUTE 0.01 10/3/uL (0.0-0.16); EOSINOPHILS 0.3 %; EOSINOPHILS ABSOLUTE 0.03 10/3/uL (0.0-0.53); HEMATOCRIT 29.7 % (36.0-48.0); HEMOGLOBIN 9.7 g/dL (12.0-16.0); IMMATURE GRANULOCYTES 0.2 %; IMMATURE GRANULOCYTES ABSOLUTE 0.02 10/3/uL (0.0-0.11); LYMPHOCYTES 27.1 %; LYMPHOCYTES ABSOLUTE 2.38 10/3/uL (0.67-4.30); MEAN CORPUS HGB CONC 32.7 g/dL (32.0-36.0); MEAN PLATELET VOLUME 12.9 fL (9.2-13.0); MONOCYTES 12.5 %; NEUTROPHILS 59.8 %; NEUTROPHILS ABSOLUTE 5.23 10/3/uL (2.02-8.40); RBC DISTRIBUTION WIDTH 15.6 % (12.0-16.0); RED CELL COUNT 3.03 10/6/uL (4.0-5.6); WHITE BLOOD CELLS 8.8 10/3/uL (4.5-10.5)
[2016-12-03 06:51] LABS: MANUAL DIFF NO %; PLATELET COUNT 172 10/3/uL (150-400)
[2016-12-03 07:07] LABS: A/G RATIO 1.1 (0.7-1.9); ALBUMIN 2.8 G/DL (3.5-5.0); ALKALINE PHOSPHATASE 154 U/L (45-117); BUN (BLOOD UREA NITROGEN) 47 MG/DL (6-23); CALCIUM, SERUM 8.7 MG/DL (8.5-10.4); CHLORIDE, SERUM 104 MMOL/L (96-112); CO2 (CARBON DIOXIDE) 26 MMOL/L (24-34); CREATININE 2.11 MG/DL (0.55-1.02); GFR AFRICAN AMERICAN 30 ML/MIN (>=60); GFR NON AFRICAN AMERICAN 26 ML/MIN (>=60); GLOBULIN 2.5 G/DL (2.5-4.1); GLUCOSE, SERUM 119 MG/DL (60-99); PHOSPHORUS, SERUM 1.7 MG/DL (2.5-4.5); POTASSIUM, SERUM 4.2 MMOL/L (3.5-5.3); SGOT(AST) 10 U/L (5-40); SGPT(ALT) 24 U/L (5-65); SODIUM, SERUM 142 MMOL/L (135-148); TOTAL BILIRUBIN 0.8 MG/DL (0-1.2); TOTAL PROTEIN 5.3 G/DL (6.0-8.5)
[2016-12-10 04:20] LABS: BASOPHILS 0 %; EOSINOPHILS 0.1 %; EOSINOPHILS ABSOLUTE 0.01 10/3/uL (0.0-0.53); HEMATOCRIT 32.2 % (36.0-48.0); HEMOGLOBIN 10.5 g/dL (12.0-16.0); IMMATURE GRANULOCYTES 0.3 %; IMMATURE GRANULOCYTES ABSOLUTE 0.03 10/3/uL (0.0-0.11); LYMPHOCYTES 26.1 %; LYMPHOCYTES ABSOLUTE 2.31 10/3/uL (0.67-4.30); MEAN CORPUS HGB CONC 32.6 g/dL (32.0-36.0); MEAN CORPUSCULAR HEMOGLOB 32.3 pg (26.0-34.0); MEAN CORPUSCULAR VOLUME 99.1 fL (80-100); MEAN PLATELET VOLUME 11.5 fL (9.2-13.0); MONOCYTES 7.6 %; MONOCYTES ABSOLUTE 0.67 10/3/uL (0.21-1.20); NEUTROPHILS 65.9 %; NEUTROPHILS ABSOLUTE 5.82 10/3/uL (2.02-8.40); RBC DISTRIBUTION WIDTH 14.7 % (12.0-16.0); RED CELL COUNT 3.25 10/6/uL (4.0-5.6); WHITE BLOOD CELLS 8.8 10/3/uL (4.5-10.5)
[2016-12-10 04:24] LABS: MANUAL DIFF NO %; PLATELET COUNT 259 10/3/uL (150-400)
[2016-12-10 04:49] LABS: CALCIUM, SERUM 9.5 MG/DL (8.5-10.4); CHLORIDE, SERUM 111 MMOL/L (96-112); CO2 (CARBON DIOXIDE) 27 MMOL/L (24-34); CREATININE 1.95 MG/DL (0.55-1.02); GFR AFRICAN AMERICAN 33 ML/MIN (>=60); GFR NON AFRICAN AMERICAN 28 ML/MIN (>=60); POTASSIUM, SERUM 3.8 MMOL/L (3.5-5.3); SODIUM, SERUM 148 MMOL/L (135-148)
[2016-12-10 04:50] LABS: BUN (BLOOD UREA NITROGEN) 37 MG/DL (6-23); GLUCOSE, SERUM 66 MG/DL (60-99)
[2016-12-10] MEDS ORDERED: COREG12 PO (15:02)
[2016-12-10] MEDS ORDERED: LAN125 PO (15:02)
[2016-12-10] MEDS ORDERED: MIRALAX POWDER1 PKT (15:04)
[2016-12-10] MEDS ORDERED: SEROQUEL1C PO (15:06)
[2016-12-10] MEDS ORDERED: SEROQUEL1C (15:06)
[2016-12-10] MEDS ORDERED: DEMA20 PO (15:07)
[2016-12-10] MEDS ORDERED: APRES25 PO (15:09)
[2016-12-10] MEDS ORDERED: P10 (15:10)
[2016-12-10] MEDS ORDERED: LEVEMIR (15:11)
[2016-12-10] MEDS ORDERED: KLONO1 PO (15:14)
[2016-12-11] MEDS ORDERED: LAN125 PO (19:20)
[2016-12-11] MEDS ORDERED: COREG12 PO (19:20)
[2016-12-11] MEDS ORDERED: KLONO1 PO (19:20)
[2016-12-11] MEDS ORDERED: MIRALAX POWDER1 PKT PO (19:21)
[2016-12-11] MEDS ORDERED: KDUR10 PO (19:21)
[2016-12-11] MEDS ORDERED: LEVEMFLXPN SC (19:21)
[2016-12-11] MEDS ORDERED: APRES25 PO (19:21)
[2016-12-11] MEDS ORDERED: P10 PO (19:22)
[2016-12-11] MEDS ORDERED: SEROQUEL1C PO (19:22)
[2016-12-11] MEDS ORDERED: SEROQUEL200 MG PO (19:22)
[2016-12-11] MEDS ORDERED: NORCO1 TA1 PO (19:25)
[2016-12-11] MEDS ORDERED: DEMA20 PO (19:26)
[2016-12-11] MEDS ORDERED: COMBIVENT RESPIM4 GM INH (19:26)
== END 2016-12-10 17:21 | disposition home health service (06) | DRG 637 ==
LOC: ER 15:13 → 7NO 20:34
PROVIDERS: Emergency Medicine; Internal Medicine; Nurse Practitioner Acute Care
DX: E11.65 Type 2 diabetes mellitus with hyperglycemia (principal); G93.41 Metabolic encephalopathy; N17.9 Acute kidney failure, unspecified; I42.9 Cardiomyopathy, unspecified; I50.42 Chronic combined systolic (congestive) and diastolic (congestive) heart failure; N18.3 Chronic kidney disease, stage 3 (moderate); E11.649 Type 2 diabetes mellitus with hypoglycemia without coma; E11.22 Type 2 diabetes mellitus with diabetic chronic kidney disease; E86.1 Hypovolemia; F31.9 Bipolar disorder, unspecified; D86.1 Sarcoidosis of lymph nodes; D86.3 Sarcoidosis of skin; M54.5 Low back pain; G89.29 Other chronic pain; Z87.440 Personal history of urinary (tract) infections; Z88.0 Allergy status to penicillin; Z88.8 Allergy status to other drugs, medicaments and biological substances; Z22.39 Carrier of other specified bacterial diseases; Z79.52 Long term (current) use of systemic steroids; Z79.4 Long term (current) use of insulin
CPT/HCPCS: 36600; 70450; 71010; 76705; 80048; 80053; 80076; 80162; 80305; 81001; 82009; 82164; 82550; 82805; 82962; 83605; 83690; 83735; 83880; 84100; 84145; 84478; 84484; 85025; 85610; 85652; 85730; 87077; 87086; 87186; 87328; 87329; 87493; 87493-59; 89055; 93005; 93970; 96365; 96366; 96376; 99291; A9270-GY; J2250; J2405; J2710; J3010

== ENCOUNTER 2016-12-11 15:48 | Inpatient (IN) | payer MEDICARE ==
--- NOTE | ~2016-12-11 | DS ---
Discharge Summary [place] [id number] [facility] [place]. [address] NAME: CARON REILLY : 64 STATUS : DIS IN PAT#: [id number] AGE: 56 ADM/REG DATE : 12/11/16 MR#: [id number] REPORT SERV DATE: 12/22/16 DICTATED BY: ROB CHRISTIAN DATE: 12/21/16 REPORT STATUS : Draft TRANSCRIBED BY: MODL DATE: 12/21/16 ADMISSION DATE: 12/11/2016 DISCHARGE DATE: 12/21/2016 PROCEDURES DONE: 1. On 12/11/2016, chest x-ray: No acute cardiopulmonary process. 2. On 12/11/2016, CT abdomen and pelvis without contrast: Moderate to large amount of stool in the colon as described, compatible with some underlying fecal stasis/constipation. No bowel obstruction pattern demonstrated. Diffuse subcutaneous edema/anasarca. Fat containing right periumbilical hernias as described without bowel involvement. Status post hysterectomy and cholecystectomy. Stable cardiomegaly with trace pericardial effusion. CONSULTS: 1. Gibran James M.D. for Psychiatry. 2. Nurse practitioner, Monster Franco, for GI. REASON FOR ADMISSION: Abdominal pain. HISTORY OF HOSPITAL STAY: A 56-year-old black female with past medical history of systolic congestive heart failure with an EF of 20%, gastroparesis, history of sarcoidosis, chronic kidney disease, stage 4, bipolar, presenting with abdominal pain of unknown duration. The patient has been having uncontrolled abdominal pain for quite some time. The patient was admitted for further control of abdominal pain. Unfortunately, the patient has also been having issues with her bipolar. Psychiatry was consulted regarding the patient's bipolar issue. The patient was given both Klonopin and Seroquel at a higher dose from what the patient is used to. Unfortunately, the patient's son felt that the bipolar/manic psych issue was driven more by the gastroparesis pain. Despite efforts by Psychiatry control the bipolar/manic phase with Seroquel, the son felt that the more appropriate action will be to decrease these medications since the patient gets to "slow down". The patient is less interactive with family members. The son felt that increasing the pain medications to help with the gastroparesis will help with the psych issues. Eventually, Psychiatry changed the medication and cut down the Seroquel to Seroquel 100 mg one tablet a.m. and two tablets q.h.s. and in addition reduce the Klonopin to 1 mg p.o. q.h.s. In addition, the patient was also having issues regarding her p.o. intake which cause elevated renal function. Hopefully with the patient's mentation increasing she can maintain her p.o. and liquid intake to improve her renal function. Furthermore, the patient's son has been warned that increasing pain medications to control gastroparesis pain will eventually be difficult to maintain over time. The son is aware of the repercussions. DISPOSITION: The patient is feeling fine. No complaints. ACTIVITY: As tolerated. DIET: Diabetic. Discharge Summary [address] [address] NAME: CARON REILLY : 64 STATUS : DIS IN PAT#: [id number] AGE: 56 ADM/REG DATE : 12/11/16 MR#: [id number] REPORT SERV DATE: 12/22/16 DICTATED BY: ROB CHRISTIAN DATE: 12/21/16 REPORT STATUS : Draft TRANSCRIBED BY: ALEK DATE: 12/21/16 INSTRUCTIONS UPON DISCHARGE: 1. The patient to follow up with Psych until tomorrow afternoon. 2. The patient to follow up with primary care physician within one to two weeks' time. MEDICATIONS UPON DISCHARGE: 1. Demadex 20 mg p.o. daily. 2. Coreg 12.5 mg p.o. t.i.d. 3. Digoxin 125 mcg daily. 4. Tat[place]k 7.5 mg one tablet p.o. t.i.d. 5. Levemir 30 units subcu q.h.s. 6. MiraLAX 17 g p.o. daily. 7. Seroquel 100 mg p.o. q.a.m. 8. Seroquel 100 mg two tablets q.h.s. 9. Klonopin 1 mg p.o. q.h.s. 10.Hydralazine 25 mg p.o. t.i.d. 11.Potassium 10 mEq daily. 12.Prednisone 10 mg p.o. q.a.m. 13.Combivent two puffs three times a day p.r.n. DIAGNOSES UPON DISCHARGE: 1. Abdominal pain secondary to gastroparesis. 2. Gastroparesis. 3. Bipolar with mohamud. 4. History of sarcoid. 5. Diabetes type 2. 6. Systolic congestive heart failure with an ejection fraction of 20%. 7. Urinary tract infection. EVELIN/RAJL Rob Christian MD / [id number] CC: MD Noah Bhatti M.D.
--- NOTE | ~2016-12-11 | HP ---
History And Physical [place] [id number] [facility] [place]. [address] NAME: CARON REILLY : 64 STATUS : ADM Nam PAT#: [id number] AGE: 56 ADM/REG DATE : 12/11/16 MR#: [id number] REPORT SERV DATE: 12/12/16 DICTATED BY: ARBEN GERBER DATE: 12/11/16 REPORT STATUS : Draft TRANSCRIBED BY: MODL DATE: 12/11/16 DATE OF ADMISSION: 12/11/2016 CHIEF COMPLAINT: A 56-year-old female with gastroparesis, systolic congestive heart failure, sarcoidosis, chronic kidney disease stage 4, and bipolar disorder, now presenting with uncontrolled abdominal pain, nausea, bipolar mohamud, and weakness with near falls. HISTORY OF PRESENTING ILLNESS: The patient's history was obtained through an interview with the patient, coupled with review of [facility] medical records. When I asked the patient how long she has been feeling sick, she says that it has been "for more than a year," and she states that her problems include gastroparesis, sarcoidosis, and bipolar disorder. Indeed, she was hospitalized earlier this month for uncontrolled bipolar disorder with manic presentation, but also other symptoms. She is able to be discharged in stable condition on the day prior to this admission, but unfortunately, she states that she became "worse" immediately upon returning home. Her main complaint has been abdominal pain in the epigastric area of cramping quality, 9/10 severity that is constant. She also describes extreme nausea, but no vomiting as of yet. She has an extremely poor appetite, unable to eat anything over the last 24 hours. But of particular concern is that the family feels the patient is at considerable fall risk. She cannot walk without assistance and has almost been following. The patient claim this because she normally feels weak and fatigued, but also has discomfort and arthritis in her legs now. She has chronic shortness of breath, no different from baseline. No cough. No fevers or chills. No diarrhea. No headaches. No chest pain. REVIEW OF SYSTEMS: Otherwise, a 14-point review of systems was obtained and was negative. PAST MEDICAL HISTORY: 1. Sarcoidosis with mediastinal lymphadenopathy. 2. Gastroparesis. 3. Systolic congestive heart failure. Ejection fraction 20% with diastolic dysfunction as well. 4. Chronic kidney disease stage 4. Baseline creatinine of 1.9 to 2.3. 5. Diabetes. Hemoglobin A1c of 7.9 in October 2016. 6. Bipolar disorder with manic presentation. 7. Hypertension. History And Physical [address] [address] NAME: CARON REILLY : 64 STATUS : ADM Nam PAT#: [id number] AGE: 56 ADM/REG DATE : 12/11/16 MR#: [id number] REPORT SERV DATE: 12/12/16 DICTATED BY: ARBEN GERBER DATE: 12/11/16 REPORT STATUS : Draft TRANSCRIBED BY: ALEK DATE: 12/11/16 8. Urinary tract infections. PAST SURGICAL HISTORY: 1. Cholecystectomy. 2. Hysterectomy. 3. . ALLERGIES: PENICILLIN AND HALDOL. SOCIAL HISTORY: No tobacco abuse. No alcohol abuse. Lives with son, is single, has a sister that lives "around the corner." She has grandchildren. She ambulates with a cane. 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 FAMILY HISTORY: Mother and father both with end-stage renal disease. One family member with multiple myeloma. CURRENT MEDICATIONS: Include, Coreg 12.5 mg p.o. b.i.d., Klonopin 1 mg p.o. t.i.d. as needed, digoxin 0.125 mg p.o. daily, hydralazine 25 mg p.o. t.i.d., hydrocodone p.r.n. Levemir 30 units subcutaneous at bedtime, Combivent two puffs inhaled three times a day, MiraLAX 17 g p.o. daily, potassium 10 mEq p.o. daily, prednisone 10 mg p.o. daily, Seroquel 100 mg p.o. daily and 200 mg at night, Demadex 20 mg p.o. daily. PHYSICAL EXAMINATION: GENERAL: A quite agitated, irritable, and animated female. She describes distress from nausea and abdominal pain. HEENT: Pupils equal, round, and reactive to light. No conjunctival pallor. No scleral icterus. Nares are patent. Oropharynx is clear of obstruction. Dry mucous membranes currently. NECK: Trachea midline. No thyromegaly. LYMPH: No cervical lymphadenopathy. No supraclavicular lymphadenopathy. RESPIRATORY: Completely clear to auscultation at bases. No wheezes, rales, or rhonchi. Normal respiratory effort. CARDIOVASCULAR: Regular rate and rhythm. No murmurs, rubs, or gallops. No current extremity edema is appreciated. ABDOMEN: Significant epigastric abdominal pain. No rebound. No guarding. Nondistended. No hepatosplenomegaly. DERMATOLOGICAL: Warm and dry extremities. No pallor. No cyanosis. PSYCHIATRIC: The patient is very manic with an animated affect and agitated, irritable mood. She denies anxiety, denies depression, denies suicidal ideation, denies homicidal ideation. She is alert and oriented x3. LABORATORY DATA: White blood count 7.5, hemoglobin 9.4, hematocrit 28.8, platelets 214. ESR 9. Urinalysis negative for infection. Sodium 147, potassium 4.2, chloride 109, bicarb 29, BUN 36, creatinine 2.17, glucose 132, lipase 170, alkaline phosphatase 269. STUDIES: 1. Chest x-ray by my own evaluation shows no acute cardiopulmonary process. History And Physical [address] [address] NAME: CARON REILLY : 64 STATUS : ADM Nam PAT#: [id number] AGE: 56 ADM/REG DATE : 12/11/16 MR#: [id number] REPORT SERV DATE: 12/12/16 DICTATED BY: ARBEN GERBER DATE: 12/11/16 REPORT STATUS : Draft TRANSCRIBED BY: ALEK DATE: 12/11/16 2. EKG by my own evaluation shows sinus rhythm, no major abnormalities. 3. CT scan of the abdomen and pelvis shows no acute intraabdominal process. ASSESSMENT AND PLAN: 1. Gastroparesis exacerbation. We will try low-dose Reglan to see if the patient tolerates this without any adverse reactions. It is noted that a caution is advised when using Reglan with an antipsychotic medications such as Seroquel. We will need to monitor for potential affects such as extrapyramidal adverse reactions. Caution is also advised when using this medication with digoxin as it may decrease the effectiveness of this medication, so we will check digoxin level. But with severity of the patient's symptoms, I think it is reasonable to at least try the Reglan to see if she tolerates it without any side effects. 2. Uncontrolled bipolar disorder with manic features. Continue antipsychotic with p.r.n. IV benzodiazepines obtain a Psychiatric consult with Dr. James. 3. Weakness and near falls. Obtain a Physical Therapy evaluation and a Case Management evaluation. 4. Chronic kidney disease stage 4. 5. Diabetes. Hemoglobin A1c of 7.9 in October 2016. Continue basal insulin and sliding scale insulin. 6. Chronic systolic and diastolic congestive heart failure. Ejection fraction of 20%. Monitor volume status closely. The patient seems "a bit dry" by my own evaluation at this time. We will hold Demadex at least for the next 24 hours and monitor closely. 7. Sarcoidosis, on chronic prednisone. KPL/MODL Arben Gerber M.D. / [id number] CC: Jimmy Blake Jr, MD Stephen Adams, M.D.
--- NOTE | ~2016-12-11 | CN ---
Consultation Report [facility] [address] [place]. [address] NAME: CARON REILLY : 64 STATUS : ADM IN PAT#: [id number] AGE: 56 ADM/REG DATE : 12/11/16 MR#: [id number] REPORT SERV DATE: 12/14/16 DICTATED BY: GIBRAN BURRELL DATE: 12/14/16 REPORT STATUS : Draft TRANSCRIBED BY: MODL DATE: 12/14/16 PSYCHIATRIC CONSULTATION DATE OF CONSULTATION: 12/14/2016 I reviewed this patient's current and old medical records. HISTORY OF PRESENT ILLNESS: She was readmitted just 1 day following her previous discharge from this hospital, with low-back pain, abdominal pain, and flank pain. PAST PSYCHIATRIC HISTORY: She has suffered from episodic insomnia and mood swings most of her adult life. During her previous admission here from 11/26/2016 to 12/10/2016, she was very labile with episodic agitation, loud crying, and ongoing complaints of severe back pain. She was discharged on Seroquel 100 mg a.m. and 200 mg h.s. and Klonopin 1 mg t.i.d. p.r.n. Her compliance with medications post discharge is unknown. SOCIAL HISTORY: She lives alone, with reportedly good family support. MENTAL STATUS: She was sitting on the side of the bed. She was very animated, with pressured speech and flight of ideas. Her affect was labile. She was complaining of pain in her back "like they are kicking me in the back and in the butt." She was oriented to "[facility]"-"November"-"2009"-"it is the day after "-"Tr." DIAGNOSIS: Bipolar disorder, manic. RECOMMENDATIONS: I will increase her Seroquel to 200 mg a.m. and 400 mg h.s. and add Klonopin 0.5 mg a.m. and 1 mg at bedtime. HANNY/ALEK Gibran Burrell M.D. / [id number] CC: Jimmy Blake Jr, MD John Adams, M.D.
--- NOTE | ~2016-12-11 | CN ---
Consultation Report [facility] [address] [place]. [address] NAME: CARON REILLY : 64 STATUS : ADM IN PAT#: [id number] AGE: 56 ADM/REG DATE : 12/11/16 MR#: [id number] REPORT SERV DATE: 12/14/16 DICTATED BY: DELORES BROWN DATE: 12/14/16 REPORT STATUS : Draft TRANSCRIBED BY: MODL DATE: 12/14/16 GI CONSULTATION DATE OF CONSULTATION: 12/14/2016 REASON FOR CONSULTATION: Evaluation and management of gastroparesis. HISTORY OF PRESENT ILLNESS: Ms Reilly is a 56-year-old, female patient, who is admitted on 12/11/2016, with a chief complaint of gastroparesis, CHF, CKD 4, bipolar, came with abdominal pain, uncontrolled nausea, bipolar mohamud, weakness and falls. It appears that she was just discharged on 12/10/2016 from a hospitalization that included bipolar disorder, acute manic phase, chronic cardiomyopathy with a cardiac ejection fraction of 20%, diabetes mellitus, and a history of sarcoidosis. She re-presented with the above complaints. By review of records, since 12/11/2016, she has had her diet increased. She continues to tolerate a diet. However secondary to family's request, GI was consulted for evaluation of her gastroparesis. Ms. Reilly is not certain on her history of gastroparesis. She states that it has been multiple years since her diagnosis. She does follow with a GI physician over at [place] but she cannot recall his name stating that she saw him one year ago that he put her on some medication "to clean out the food" and had done well for a period of time. However, she states that some days she will do well but then she might have days where she vomits and it will carry on for a week. She is not on any current gastroparesis medications. She tells me that she ate her diet fine today. I did discuss via the patient on telephone with her sister GI workup, she cannot recall her last endoscopy. She denies any NSAID use. She has complaints of abdominal discomfort, but she looks relatively comfortable. She was up ambulating in the room. She has not told me she has had any nausea at this time. I have discussed with the patient that we will try her on certain gastroparetic medications as well as an H2 inhibitor to see if it gives her any benefit with her stomach. The patient has not had a bowel movement since coming into the hospital. PAST MEDICAL HISTORY: Sarcoidosis with mediastinal lymphadenopathy; gastroparesis, diagnosed at [facility] and followed by a GI physician there; systolic CHF, last ejection fraction 20%; CKD 4; type 2 diabetes; bipolar disorder with manic presentation; hypertension. PAST SURGICAL HISTORY: Cholecystectomy, hysterectomy, and . ALLERGIES: TO PENICILLIN AND HALDOL. SOCIAL HISTORY: She denies alcohol, tobacco, or illicits. She lives with her son. FAMILY HISTORY: Noncontributory from a GI standpoint. MEDICATIONS: Coreg, Klonopin, digoxin, hydralazine, hydrocodone, Levemir, Combivent, Consultation Report [address] [place]. [address] NAME: CARON REILLY : 64 STATUS : ADM IN [facility]#: [id number] AGE: 56 ADM/REG DATE : 12/11/16 MR#: [id number] REPORT SERV DATE: 12/14/16 DICTATED BY: DELORES BROWN DATE: 12/14/16 REPORT STATUS : Draft TRANSCRIBED BY: ALEK DATE: 12/14/16 MiraLAX, prednisone, Seroquel, and Demodex. REVIEW OF SYSTEMS: A 10-point review of systems was obtained with pertinent positives being addressed in the history of present illness. PHYSICAL EXAMINATION: VITAL SIGNS: Temperature 98.6, pulse 88, respirations 18, blood pressure 135/72. NEUROLOGIC: Reveals an alert, female, up and ambulating in her room with no focal deficits being noted. GENERAL: She is cooperative. She is in no acute obvious distress. She is awake. She is alert. She is oriented x3. HEENT: Head, ears, eyes, nose, and throat are anicteric. Pupils are equal, round, reactive to light and accommodation. Normocephalic and atraumatic. NECK: No JVD. No palpable nodes. LUNGS: Clear in the upper lobes. Diminished in the bases. CARDIOVASCULAR SYSTEM: Regular rate and rhythm. ABDOMEN: Soft, nondistended, nontender with active bowel sounds in all four quadrants. EXTREMITIES: No edema. Normal distal pulses. SKIN: Warm, dry, and intact. PERTINENT LABORATORY DATA: Sodium 143, potassium 4.1, BUN is 42, creatinine is 2.13, white count 6.6, hemoglobin 8.7, hematocrit 26.5. CT of the abdomen and pelvis on admission showed [id number] amount of stool in the colon, compatible with underlying fecal stasis. No bowel obstruction pattern, diffuse subcutaneous edema, and anasarca. ASSESSMENT/PLAN: 1. Gastroparesis exacerbation that at present seems to have resolved. She is tolerating a diet. She is followed at [place] in the outpatient setting. 2. Bipolar with mohamud. 3. Back pain resolved. 4. History of sarcoidosis. 5. Diabetes type 2. PLAN: 1. We will add Pepcid. 2. Low-dose BuSpar. 3. Gastroparesis diet. 4. Recommended she follows up with her GI at [place]. No plans for endoscopy. Reconsult if needed. ASHLEE/ALEK Consultation Report [address] [place]. [address] NAME: CARON REILLY : 64 STATUS : ADM IN PAT#: [id number] AGE: 56 ADM/REG DATE : 12/11/16 MR#: [id number] REPORT SERV DATE: 12/14/16 DICTATED BY: DELORES BROWN DATE: 12/14/16 REPORT STATUS : Draft TRANSCRIBED BY: ALEK DATE: 12/14/16 ALEJA Spencer / [id number] CC: Lee Warner M.D.
[~2016-12-11 15:48] MED LIST changes: +APRES25 PO; +BACTRIM DS1 TAB PO; +COREG12 PO; +DEMA20 PO; +HUMULIN N1 ML SC; +KLONO1 PO; +LAN125 PO; +LEVEMIR; +MIRALAX POWDER1 PKT; +P10; +SEROQUEL1C
[2016-12-11 17:03] LABS: BASOPHILS 0 %; EOSINOPHILS 0.1 %; EOSINOPHILS ABSOLUTE 0.01 10/3/uL (0.0-0.53); ER CBC TAT 0 Hrs 05 Mins; HEMOGLOBIN 9.4 g/dL (12.0-16.0); IMMATURE GRANULOCYTES 0.3 %; IMMATURE GRANULOCYTES ABSOLUTE 0.02 10/3/uL (0.0-0.11); LYMPHOCYTES 13.1 %; LYMPHOCYTES ABSOLUTE 0.99 10/3/uL (0.67-4.30); MEAN CORPUS HGB CONC 32.6 g/dL (32.0-36.0); MEAN CORPUSCULAR HEMOGLOB 32.3 pg (26.0-34.0); MEAN PLATELET VOLUME 11.5 fL (9.2-13.0); MONOCYTES 3.7 %; MONOCYTES ABSOLUTE 0.28 10/3/uL (0.21-1.20); NEUTROPHILS 82.8 %; NEUTROPHILS ABSOLUTE 6.23 10/3/uL (2.02-8.40); PLATELET COUNT 214 10/3/uL (150-400); RBC DISTRIBUTION WIDTH 14.7 % (12.0-16.0); RED CELL COUNT 2.91 10/6/uL (4.0-5.6); WHITE BLOOD CELLS 7.5 10/3/uL (4.5-10.5)
[2016-12-11 17:04] LABS: HEMATOCRIT 28.8 % (36.0-48.0); MANUAL DIFF NO %
[2016-12-11 17:18] LABS: BUN (BLOOD UREA NITROGEN) 36 MG/DL (6-23); CALCIUM, SERUM 8.9 MG/DL (8.5-10.4); CHLORIDE, SERUM 109 MMOL/L (96-112); CO2 (CARBON DIOXIDE) 29 MMOL/L (24-34); CREATININE 2.17 MG/DL (0.55-1.02); GFR AFRICAN AMERICAN 29 ML/MIN (>=60); GFR NON AFRICAN AMERICAN 25 ML/MIN (>=60); POTASSIUM, SERUM 4.2 MMOL/L (3.5-5.3); SGOT(AST) 16 U/L (5-40); SGPT(ALT) 29 U/L (5-65); SODIUM, SERUM 147 MMOL/L (135-148); TOTAL BILIRUBIN 0.4 MG/DL (0-1.2)
[2016-12-11 17:19] LABS: ALKALINE PHOSPHATASE 269 U/L (45-117); GLUCOSE, SERUM 132 MG/DL (60-99)
[2016-12-11 17:40] LABS: WBC (NOT ORDERED) (RFLEX) 0 (0-5)
[2016-12-11 17:51] LABS: ASCORBIC ACID (UR NOT ORDER) NEG (NEG); BILIRUBIN, URINE NEGATIVE (NEG); ER URINALYSIS TAT 0 Hrs 13 Mins; KETONE, URINE NEGATIVE (NEG); LEUKOCYTE ESTERASE(NOT OR NEG (NEG); NITRITE (URINE) NEG (NEG)
[2016-12-11] MEDS ORDERED: KLONO1 PO (19:20)
[2016-12-11] MEDS ORDERED: LAN125 PO (19:20)
[2016-12-11] MEDS ORDERED: COREG12 PO (19:20)
[2016-12-11] MEDS ORDERED: KDUR10 PO (19:21)
[2016-12-11] MEDS ORDERED: APRES25 PO (19:21)
[2016-12-11] MEDS ORDERED: MIRALAX POWDER1 PKT PO (19:21)
[2016-12-11] MEDS ORDERED: LEVEMFLXPN SC (19:21)
[2016-12-11] MEDS ORDERED: SEROQUEL200 MG PO (19:22)
[2016-12-11] MEDS ORDERED: SEROQUEL1C PO (19:22)
[2016-12-11] MEDS ORDERED: P10 PO (19:22)
[2016-12-11] MEDS ORDERED: NORCO1 TA1 PO (19:25)
[2016-12-11] MEDS ORDERED: COMBIVENT RESPIM4 GM INH (19:26)
[2016-12-11] MEDS ORDERED: DEMA20 PO (19:26)
[2016-12-12 06:41] LABS: BASOPHILS 0 %; EOSINOPHILS 0.3 %; EOSINOPHILS ABSOLUTE 0.02 10/3/uL (0.0-0.53); HEMATOCRIT 28.6 % (36.0-48.0); HEMOGLOBIN 9.3 g/dL (12.0-16.0); IMMATURE GRANULOCYTES 0.4 %; IMMATURE GRANULOCYTES ABSOLUTE 0.03 10/3/uL (0.0-0.11); LYMPHOCYTES 30.1 %; LYMPHOCYTES ABSOLUTE 2.38 10/3/uL (0.67-4.30); MEAN CORPUS HGB CONC 32.5 g/dL (32.0-36.0); MEAN CORPUSCULAR HEMOGLOB 32.1 pg (26.0-34.0); MEAN CORPUSCULAR VOLUME 98.6 fL (80-100); MEAN PLATELET VOLUME 11.6 fL (9.2-13.0); MONOCYTES 7.8 %; MONOCYTES ABSOLUTE 0.62 10/3/uL (0.21-1.20); NEUTROPHILS 61.4 %; NEUTROPHILS ABSOLUTE 4.86 10/3/uL (2.02-8.40); PLATELET COUNT 221 10/3/uL (150-400); RBC DISTRIBUTION WIDTH 14.8 % (12.0-16.0); WHITE BLOOD CELLS 7.9 10/3/uL (4.5-10.5)
[2016-12-12 06:42] LABS: MANUAL DIFF NO %
[2016-12-12 06:53] LABS: PARTIAL THROMBO TIME 30.4 SEC (22.5-37.2); PROTIME (NOT ORD) 13.1 SEC (12.0-14.5)
[2016-12-12 07:07] LABS: ALBUMIN 2.8 G/DL (3.5-5.0); BUN (BLOOD UREA NITROGEN) 33 MG/DL (6-23); CHLORIDE, SERUM 109 MMOL/L (96-112); CO2 (CARBON DIOXIDE) 27 MMOL/L (24-34); CREATININE 1.98 MG/DL (0.55-1.02); GFR AFRICAN AMERICAN 32 ML/MIN (>=60); GFR NON AFRICAN AMERICAN 28 ML/MIN (>=60); GLOBULIN 2.9 G/DL (2.5-4.1); GLUCOSE, SERUM 126 MG/DL (60-99); POTASSIUM, SERUM 3.8 MMOL/L (3.5-5.3); SGOT(AST) 10 U/L (5-40); SGPT(ALT) 22 U/L (5-65); SODIUM, SERUM 148 MMOL/L (135-148); TOTAL BILIRUBIN 0.7 MG/DL (0-1.2); TOTAL PROTEIN 5.7 G/DL (6.0-8.5)
[2016-12-12 07:12] LABS: ALKALINE PHOSPHATASE 239 U/L (45-117); DIGOXIN 1.8 NG/ML (0.8-2.0)
[2016-12-12 10:40] LABS: AMPHETAMINES (NOT ORD) NEG (NEG); BARBITURATES (NOT ORDERED NEG (NEG); BENZODIAZEPINES (NOT ORD) NEG (NEG); CANNABINOIDS (THC) NEG (NEG); COCAINE (NOT ORDERED) NEG (NEG); OPIATES POS (NEG); PHENCYCLIDINE(PCP) NEG (NEG); TRICYCLICS NEG (NEG)
[2016-12-13 04:58] LABS: BASOPHILS 0.3 %; BASOPHILS ABSOLUTE 0.02 10/3/uL (0.0-0.16); EOSINOPHILS 0.6 %; EOSINOPHILS ABSOLUTE 0.04 10/3/uL (0.0-0.53); HEMATOCRIT 28.4 % (36.0-48.0); IMMATURE GRANULOCYTES 0.1 %; IMMATURE GRANULOCYTES ABSOLUTE 0.01 10/3/uL (0.0-0.11); LYMPHOCYTES 33.2 %; LYMPHOCYTES ABSOLUTE 2.41 10/3/uL (0.67-4.30); MEAN CORPUS HGB CONC 31.7 g/dL (32.0-36.0); MEAN CORPUSCULAR HEMOGLOB 31.7 pg (26.0-34.0); MEAN PLATELET VOLUME 11.4 fL (9.2-13.0); MONOCYTES 9.6 %; NEUTROPHILS 56.2 %; NEUTROPHILS ABSOLUTE 4.08 10/3/uL (2.02-8.40); PLATELET COUNT 172 10/3/uL (150-400); RBC DISTRIBUTION WIDTH 14.5 % (12.0-16.0); RED CELL COUNT 2.84 10/6/uL (4.0-5.6); WHITE BLOOD CELLS 7.3 10/3/uL (4.5-10.5)
[2016-12-13 05:00] LABS: MANUAL DIFF NO %
[2016-12-13 05:21] LABS: BUN (BLOOD UREA NITROGEN) 36 MG/DL (6-23); CALCIUM, SERUM 8.7 MG/DL (8.5-10.4); CHLORIDE, SERUM 108 MMOL/L (96-112); CO2 (CARBON DIOXIDE) 24 MMOL/L (24-34); CREATININE 1.85 MG/DL (0.55-1.02); GFR AFRICAN AMERICAN 35 ML/MIN (>=60); GFR NON AFRICAN AMERICAN 30 ML/MIN (>=60); SODIUM, SERUM 142 MMOL/L (135-148)
[2016-12-13 05:22] LABS: GLUCOSE, SERUM 42 MG/DL (60-99)
[2016-12-14 05:35] LABS: BASOPHILS 0.2 %; BASOPHILS ABSOLUTE 0.01 10/3/uL (0.0-0.16); EOSINOPHILS 0.3 %; EOSINOPHILS ABSOLUTE 0.02 10/3/uL (0.0-0.53); HEMATOCRIT 26.5 % (36.0-48.0); HEMOGLOBIN 8.7 g/dL (12.0-16.0); IMMATURE GRANULOCYTES 0.2 %; IMMATURE GRANULOCYTES ABSOLUTE 0.01 10/3/uL (0.0-0.11); LYMPHOCYTES 26.1 %; LYMPHOCYTES ABSOLUTE 1.73 10/3/uL (0.67-4.30); MEAN CORPUS HGB CONC 32.8 g/dL (32.0-36.0); MEAN CORPUSCULAR HEMOGLOB 32.5 pg (26.0-34.0); MEAN CORPUSCULAR VOLUME 98.9 fL (80-100); MONOCYTES 8.9 %; MONOCYTES ABSOLUTE 0.59 10/3/uL (0.21-1.20); NEUTROPHILS 64.3 %; NEUTROPHILS ABSOLUTE 4.26 10/3/uL (2.02-8.40); PLATELET COUNT 174 10/3/uL (150-400); RBC DISTRIBUTION WIDTH 14.5 % (12.0-16.0); RED CELL COUNT 2.68 10/6/uL (4.0-5.6); WHITE BLOOD CELLS 6.6 10/3/uL (4.5-10.5)
[2016-12-14 05:37] LABS: MANUAL DIFF NO %
[2016-12-14 05:47] LABS: CALCIUM, SERUM 8.6 MG/DL (8.5-10.4); CHLORIDE, SERUM 105 MMOL/L (96-112); CO2 (CARBON DIOXIDE) 28 MMOL/L (24-34); CREATININE 2.13 MG/DL (0.55-1.02); GFR AFRICAN AMERICAN 30 ML/MIN (>=60); GFR NON AFRICAN AMERICAN 26 ML/MIN (>=60); POTASSIUM, SERUM 4.1 MMOL/L (3.5-5.3); SODIUM, SERUM 143 MMOL/L (135-148)
[2016-12-14 05:52] LABS: BUN (BLOOD UREA NITROGEN) 42 MG/DL (6-23); GLUCOSE, SERUM 240 MG/DL (60-99)
[2016-12-16 03:57] LABS: HEMATOCRIT 28.5 % (36.0-48.0); HEMOGLOBIN 9.3 g/dL (12.0-16.0); MEAN CORPUS HGB CONC 32.6 g/dL (32.0-36.0); MEAN CORPUSCULAR HEMOGLOB 32.4 pg (26.0-34.0); MEAN CORPUSCULAR VOLUME 99.3 fL (80-100); MEAN PLATELET VOLUME 12.1 fL (9.2-13.0); RBC DISTRIBUTION WIDTH 14.3 % (12.0-16.0); RED CELL COUNT 2.87 10/6/uL (4.0-5.6); WHITE BLOOD CELLS 4.9 10/3/uL (4.5-10.5)
[2016-12-16 03:59] LABS: MANUAL DIFF YES %; PLATELET COUNT 112 10/3/uL (150-400)
[2016-12-16 04:16] LABS: CALCIUM, SERUM 8.5 MG/DL (8.5-10.4); CHLORIDE, SERUM 110 MMOL/L (96-112); CO2 (CARBON DIOXIDE) 29 MMOL/L (24-34); CREATININE 1.89 MG/DL (0.55-1.02); GFR AFRICAN AMERICAN 34 ML/MIN (>=60); GFR NON AFRICAN AMERICAN 30 ML/MIN (>=60); PHOSPHORUS, SERUM 2.1 MG/DL (2.5-4.5); POTASSIUM, SERUM 3.8 MMOL/L (3.5-5.3); SODIUM, SERUM 146 MMOL/L (135-148)
[2016-12-16 04:22] LABS: BUN (BLOOD UREA NITROGEN) 34 MG/DL (6-23); GLUCOSE, SERUM 113 MG/DL (60-99)
[2016-12-16 04:33] LABS: LYMPHOCYTES 18 %; LYMPHOCYTES ABSOLUTE (CALC) 0.88 10/3/uL (0.67-4.30); MONOCYTES 18 %; MONOCYTES ABSOLUTE (CALC) 0.88 10/3/uL (0.21-1.20); NEUTROPHILS ABSOLUTE (CALC) 3.14 10/3/uL (2.02-8.40); PLATELET ESTIMATE SLT DEC (ADEQUATE); RBC MORPHOLOGY NORM (NORMAL); SEGMENTED NEUTROPHIL (0) 64 %; TOTAL NUCLEATED CELLS 100
[2016-12-17 12:57] LABS: ALBUMIN 2.7 G/DL (3.5-5.0); BUN (BLOOD UREA NITROGEN) 32 MG/DL (6-23); CALCIUM, SERUM 8.2 MG/DL (8.5-10.4); CHLORIDE, SERUM 108 MMOL/L (96-112); CO2 (CARBON DIOXIDE) 26 MMOL/L (24-34); GFR AFRICAN AMERICAN 32 ML/MIN (>=60); GFR NON AFRICAN AMERICAN 28 ML/MIN (>=60); GLUCOSE, SERUM 116 MG/DL (60-99); SODIUM, SERUM 142 MMOL/L (135-148)
[2016-12-17 12:59] LABS: POTASSIUM, SERUM 4.2 MMOL/L (3.5-5.3)
[2016-12-17 13:00] LABS: PHOSPHORUS, SERUM 3.5 MG/DL (2.5-4.5)
[2016-12-17 13:45] LABS: HEPARIN-INDUCED PLATELET AB POSITIVE (NEGATIVE)
[2016-12-19 04:19] LABS: BASOPHILS 0.6 %; BASOPHILS ABSOLUTE 0.03 10/3/uL (0.0-0.16); EOSINOPHILS 0.4 %; EOSINOPHILS ABSOLUTE 0.02 10/3/uL (0.0-0.53); HEMATOCRIT 29.9 % (36.0-48.0); HEMOGLOBIN 9.4 g/dL (12.0-16.0); IMMATURE GRANULOCYTES 0.2 %; IMMATURE GRANULOCYTES ABSOLUTE 0.01 10/3/uL (0.0-0.11); LYMPHOCYTES 43.1 %; LYMPHOCYTES ABSOLUTE 2.06 10/3/uL (0.67-4.30); MEAN CORPUS HGB CONC 31.4 g/dL (32.0-36.0); MEAN CORPUSCULAR HEMOGLOB 31.6 pg (26.0-34.0); MEAN CORPUSCULAR VOLUME 100.7 fL (80-100); MEAN PLATELET VOLUME 11.7 fL (9.2-13.0); MONOCYTES 16.9 %; MONOCYTES ABSOLUTE 0.81 10/3/uL (0.21-1.20); NEUTROPHILS 38.8 %; NEUTROPHILS ABSOLUTE 1.85 10/3/uL (2.02-8.40); PLATELET COUNT 87 10/3/uL (150-400); RBC DISTRIBUTION WIDTH 14.2 % (12.0-16.0); RED CELL COUNT 2.97 10/6/uL (4.0-5.6); WHITE BLOOD CELLS 4.8 10/3/uL (4.5-10.5)
[2016-12-19 04:20] LABS: MANUAL DIFF NO %
[2016-12-19 04:38] LABS: A/G RATIO 0.7 (0.7-1.9); ALBUMIN 2.4 G/DL (3.5-5.0); BUN (BLOOD UREA NITROGEN) 32 MG/DL (6-23); CHLORIDE, SERUM 111 MMOL/L (96-112); CO2 (CARBON DIOXIDE) 30 MMOL/L (24-34); CREATININE 2.41 MG/DL (0.55-1.02); GFR AFRICAN AMERICAN 26 ML/MIN (>=60); GFR NON AFRICAN AMERICAN 22 ML/MIN (>=60); GLOBULIN 3.3 G/DL (2.5-4.1); PHOSPHORUS, SERUM 3.4 MG/DL (2.5-4.5); POTASSIUM, SERUM 4.3 MMOL/L (3.5-5.3); SGOT(AST) 24 U/L (5-40); SGPT(ALT) 24 U/L (5-65); TOTAL BILIRUBIN 0.3 MG/DL (0-1.2); TOTAL PROTEIN 5.7 G/DL (6.0-8.5)
[2016-12-19 04:42] LABS: ALKALINE PHOSPHATASE 187 U/L (45-117); GLUCOSE, SERUM 60 MG/DL (60-99); SODIUM, SERUM 149 MMOL/L (135-148)
[2016-12-20 07:12] LABS: HEMATOCRIT 30.5 % (36.0-48.0); HEMOGLOBIN 9.8 g/dL (12.0-16.0); MEAN CORPUS HGB CONC 32.1 g/dL (32.0-36.0); MEAN CORPUSCULAR HEMOGLOB 32.1 pg (26.0-34.0); MEAN PLATELET VOLUME 12.6 fL (9.2-13.0); PLATELET COUNT 105 10/3/uL (150-400); RBC DISTRIBUTION WIDTH 14.3 % (12.0-16.0); RED CELL COUNT 3.05 10/6/uL (4.0-5.6); WHITE BLOOD CELLS 5.8 10/3/uL (4.5-10.5)
[2016-12-20 07:17] LABS: MANUAL DIFF YES %
[2016-12-20 07:20] LABS: A/G RATIO 0.7 (0.7-1.9); ALBUMIN 2.4 G/DL (3.5-5.0); ALKALINE PHOSPHATASE 196 U/L (45-117); BUN (BLOOD UREA NITROGEN) 32 MG/DL (6-23); CALCIUM, SERUM 8.2 MG/DL (8.5-10.4); CHLORIDE, SERUM 110 MMOL/L (96-112); CO2 (CARBON DIOXIDE) 28 MMOL/L (24-34); CREATININE 2.39 MG/DL (0.55-1.02); GFR AFRICAN AMERICAN 26 ML/MIN (>=60); GFR NON AFRICAN AMERICAN 22 ML/MIN (>=60); GLOBULIN 3.6 G/DL (2.5-4.1); GLUCOSE, SERUM 63 MG/DL (60-99); PHOSPHORUS, SERUM 2.7 MG/DL (2.5-4.5); POTASSIUM, SERUM 4.3 MMOL/L (3.5-5.3); SGOT(AST) 20 U/L (5-40); SGPT(ALT) 24 U/L (5-65); SODIUM, SERUM 146 MMOL/L (135-148); TOTAL BILIRUBIN 0.4 MG/DL (0-1.2)
[2016-12-20 08:09] LABS: ASCORBIC ACID (UR NOT ORDER) NEG (NEG); BILIRUBIN, URINE NEGATIVE (NEG); KETONE, URINE NEGATIVE (NEG); LEUKOCYTE ESTERASE(NOT OR LARGE (NEG)
[2016-12-20 08:10] LABS: WBC (NOT ORDERED) (RFLEX) > 182 (0-5)
[2016-12-20 09:12] LABS: BAND NEUTROPHILS 1 %; EOSINOPHILS 3 %; EOSINOPHILS ABSOLUTE (CALC) 0.17 10/3/uL (0.0-0.53); IMMATURE GRANS ABSOLUTE (CALC) 0.12 10/3/uL (0.0-0.11); LYMPHOCYTES 56 %; LYMPHOCYTES ABSOLUTE (CALC) 3.25 10/3/uL (0.67-4.30); MACROCYTES 1+ (5-10/OIF) (0-5/OIF); METAMYELOCYTES 2 %; MONOCYTES 19 %; NEUTROPHILS ABSOLUTE (CALC) 1.16 10/3/uL (2.02-8.40); PLATELET ESTIMATE SLT DEC (ADEQUATE); SEGMENTED NEUTROPHIL (0) 19 %; TOTAL NUCLEATED CELLS 100
[2016-12-20 09:15] LABS: REACTIVE LYMPHS OCC (0-2%) (0-5%); SMUDGE CELLS OCC
[2016-12-20 09:16] LABS: POLYCHROMASIA 1+ (2-5/OIF) (0-1/OIF)
[2016-12-21 05:34] LABS: HEMOGLOBIN 8.8 g/dL (12.0-16.0); MEAN CORPUS HGB CONC 32.4 g/dL (32.0-36.0); MEAN CORPUSCULAR HEMOGLOB 32.2 pg (26.0-34.0); MEAN CORPUSCULAR VOLUME 99.6 fL (80-100); MEAN PLATELET VOLUME 12.9 fL (9.2-13.0); PLATELET COUNT 87 10/3/uL (150-400); RED CELL COUNT 2.73 10/6/uL (4.0-5.6)
[2016-12-21 05:37] LABS: HEMATOCRIT 27.2 % (36.0-48.0); MANUAL DIFF YES %
[2016-12-21 05:47] LABS: ALBUMIN 2.3 G/DL (3.5-5.0); CALCIUM, SERUM 8.1 MG/DL (8.5-10.4); CHLORIDE, SERUM 108 MMOL/L (96-112); CO2 (CARBON DIOXIDE) 27 MMOL/L (24-34); CREATININE 2.48 MG/DL (0.55-1.02); GFR AFRICAN AMERICAN 25 ML/MIN (>=60); GFR NON AFRICAN AMERICAN 21 ML/MIN (>=60); GLUCOSE, SERUM 73 MG/DL (60-99); PHOSPHORUS, SERUM 2.8 MG/DL (2.5-4.5); POTASSIUM, SERUM 4.3 MMOL/L (3.5-5.3); SODIUM, SERUM 144 MMOL/L (135-148)
[2016-12-21 05:56] LABS: BUN (BLOOD UREA NITROGEN) 36 MG/DL (6-23)
[2016-12-21 06:30] LABS: EOSINOPHILS 2 %; LYMPHOCYTES 61 %; LYMPHOCYTES ABSOLUTE (CALC) 3.05 10/3/uL (0.67-4.30); MONOCYTES 13 %; MONOCYTES ABSOLUTE (CALC) 0.65 10/3/uL (0.21-1.20); PLATELET ESTIMATE DEC (ADEQUATE); SEGMENTED NEUTROPHIL (0) 24 %; TOTAL NUCLEATED CELLS 100
[2016-12-21 06:32] LABS: MACROCYTES 1+ (5-10/OIF) (0-5/OIF); POLYCHROMASIA 1+ (2-5/OIF) (0-1/OIF)
[2016-12-21] MEDS ORDERED: KLONO1 (16:14)
[2016-12-21] MEDS ORDERED: SEROQUEL1C ×2 (16:16→16:17)
[2016-12-21] MEDS ORDERED: LEVAQ250 PO (16:17)
[2016-12-21] MEDS ORDERED: NORCO1 TA2 (16:18)
[2016-12-21] MEDS ORDERED: FLORASTOR250 MG (16:19)
[2016-12-22 09:33] LABS: UFH LOW DOSE 0.1 IU/ML 0 %RELEASE; UFH LOW DOSE 0.5 IU/ML 0 %RELEASE; UFH SRA RESULT NEGATIVE (NEGATIVE)
[2016-12-22 09:34] LABS: UFH HIGH DOSE 100 IU/ML 0 %RELEASE
== END 2016-12-21 18:13 | disposition home or self-care (01) | DRG 74 ==
LOC: ER 15:48 → CDU1 19:39 → CDU2 19:49 → 7NO 12-12 10:18
PROVIDERS: Emergency Medicine; Hospitalist; Internal Medicine
DX: E11.43 Type 2 diabetes mellitus with diabetic autonomic (poly)neuropathy (principal); I42.9 Cardiomyopathy, unspecified; I50.42 Chronic combined systolic (congestive) and diastolic (congestive) heart failure; I13.0 Hypertensive heart and chronic kidney disease with heart failure and stage 1 through stage 4 chronic kidney disease, or unspecified chronic kidney disease; E11.22 Type 2 diabetes mellitus with diabetic chronic kidney disease; F11.20 Opioid dependence, uncomplicated; F31.10 Bipolar disorder, current episode manic without psychotic features, unspecified; N39.0 Urinary tract infection, site not specified; K31.84 Gastroparesis; D86.9 Sarcoidosis, unspecified; N18.3 Chronic kidney disease, stage 3 (moderate); M54.6 Pain in thoracic spine; F20.9 Schizophrenia, unspecified; Z90.710 Acquired absence of both cervix and uterus; Z90.49 Acquired absence of other specified parts of digestive tract
CPT/HCPCS: 71010; 74176; 80048; 80053; 80069; 80162; 80305; 81001; 82947; 82962; 83690; 83735; 83880; 84100; 84443; 85025; 85610; 85730; 86022; 86022-59; 87077; 87086; 87186; 93005; 97116-GP; 97162-GP; 97530-GP; 99285; A9270-GY; G8978-CL-GP; G8979-CK-GP; J1170; J2765